=== PATIENT | male | born 1970 | race Caucasian/White ===

== ENCOUNTER 2017-09-17 13:16 | Emergency (ER) | payer OTHER, SELFPAY ==
[2017-09-17 13:17] VITALS: BP 160/76; PULSE 80; RESP 16; TEMP 36.2; O2SAT 97; BMI 25.8
--- NOTE | 2017-09-17 13:18 | CT_ITS ---
STUDY: CT ABDOMEN AND PELVIS WITHOUT CONTRAST REASON FOR EXAM: Male, 46 years old. LEFT FLANK PAIN STARTING THIS AM. RADIATION DOSAGE (If Supplied By Facility): CTDIvol = ( 7.38 ) mGy, DLP = ( 400.02 ) mGycm TECHNIQUE: Transaxial images were obtained from the dome of the diaphragm to the symphysis pubis without oral contrast, and without intravenous contrast. Sagittal and coronal images were reconstructed. Individualized dose optimization techniques were used for this CT. COMPARISON: None. FINDINGS: The visualized lung bases are unremarkable. The visualized portions of the heart are within normal limits. Normal liver. Normal gallbladder and extrahepatic biliary system. Normal spleen. Normal pancreas. Normal bilateral adrenal glands. Normal right kidney. The left kidney demonstrates the presence of mild hydroureteronephrosis. There is a 3 mm calculus at the left UVJ (axial image #164 series 2) Normal visualized stomach. Normal small intestine. There are multiple colonic diverticula consistent with diverticulosis. The appendix is visualized and appears normal. Normal abdominal aorta. Normal inferior vena cava. Normal retroperitoneum. Normal urinary bladder. Normal abdominal wall. There are diffuse degenerative changes of the visualized lumbar spine. CT/Abdomen/Pelvis without Cont IMPRESSION: 3 mm UVJ calculus with mild hydroureteronephrosis on the left. Electronically Signed: Roya Banda MD at 14:06 EST Tel , Service support ,
[2017-09-17] MEDS: Ondansetron 4 MG/2 ML Vial IV (13:33)
[2017-09-17] MEDS: 0.9% Normal Saline 1,000 ML 250 ML IV (13:33)
[2017-09-17] MEDS: Ketorolac 30 MG/ML Syringe IV (13:51)
[2017-09-17 13:58] LABS: Absolute Lymphocyte Count 2.13 X10^3/ul (0.83-4.51); Basophil# 0.03 X10^3/uL; Basophil% 0.2 % (0-1); Eosinophils% 0.8 % (0-5); Hematocrit 43.7 % (40-54); Hemoglobin 15.2 g/dl (13.0-16.5); Lymphocyte # 2.13 X10^3/ul (4.0); Lymphocyte % 16.5 % (19-41); Mean Corp Hgb Conc 34.8 g/gl (32-36); Mean Corpuscular Hgb 29.9 pg (27.0-32.0); Mean Platelet Vol. 9.8 fl (6.2-12.0); Monocyte# 0.65 X10^3/uL; Neutrophil # 9.95 X10^3/uL (2.7-7.7); Neutrophil % 77.2 % (47-70); POSITIVE COUNT NO; POSITIVE DIFFERENTIAL NO; POSITIVE MORPHOLOGY NO; Platelet Count 275 K/mm3 (150-450); RBC Distribution Width CV 13.1 % (11.6-14.6); RBC Distribution Width SD 41.3 fl (35.1-43.9); Red Blood Count 5.08 M/mm3 (4.6-6.2); White Blood Count 12.9 K/mm3 (4.4-11.0)
[2017-09-17 14:09] LABS: Anion Gap 10 (5-15); BUN 15 mg/dL (7-18); BUN/Creat Ratio 9.5 RATIO (10-20); Calcium,Total 8.8 mg/dL (8.5-10.1); Chloride 105 mmol/L (98-107); Creatinine, Serum 1.58 mg/dL (0.70-1.30); EST Glomerular Filtration Rate 50 mL/min (>60); Est Glom Filt Rate - Afr Amer 61 mL/min (>60); Estimated Creatinine Clearance 59.04 ml/min; Glucose 136 mg/dL (74-106); Potassium 3.5 mmol/L (3.5-5.1); Sodium Level 139 mmol/L (136-145)
[2017-09-17 14:39] LABS: Bacteria 0 SEEN /hpf (None Seen); Mucous, Urine 0 SEEN /hpf (<or=2+); Squamous Epithelial Cells - UA 0 SEEN /hpf (0-5); White Blood Cells 0 SEEN /hpf (0-5)
[2017-09-17 14:54] LABS: Color, Urine Yellow (Yellow); Glucose, Dipstick Normal (Normal); Ketone-Dipstick Negative (Negative); Leukocyte Esterase-Dipstick Negative /ul (Negative); Nitrite-Dipstick Negative (Negative); Occult Blood-Urine 250 /ul (Negative); Protein-Dipstick Negative (Negative); Urine Bilirubin Dipstick Negative (Negative); Urine Clarity Clear (Clear); Urine Urobilinogen Normal (Normal)
--- NOTE | 2017-09-17 15:05 | ED.DCSUM_ITS ---
- ER Visit Summary Date of Service: 09/17/17 Chief Complaint: [] Left flank pain sudden onset today History of Present Illness: The patient is a 46 M [] no real past history repeats begins having sudden onset left flank pain presents for evaluation no trauma no fever no cough normal bowel bladder habits works as a police department secretary no injury to his body Physical Examination: [] Is a pain to the left flank his vital signs are normal he is afebrile head neck chest unremarkable abdomen soft there is very vague pain to the left flank but the abdomen is soft and nontender upper lower extremity unremarkable clinically looks well he is feeling better after therapy Test Results: [] Emergency Department Course and Treatment: [] Count is 13, his creatinine is 1.58 there is no old one, the CT shows a 3 mm UVJ stone left with hydronephrosis and hydroureter, on reevaluation he is feeling better explained test results to him he feels well be discharged to follow-up with RICARDO Cantu and return for change in symptoms I did explain the concept his creatinine is slightly elevated he understands and will follow up Treatment Plan: [] Disposition: [] Stable home Impression: [] Flank pain related to obstructing left UVJ stone 3 mm This note was generated with [employer] dictation software. It may contain incorrect words, spelling, and punctuation that were not noted in review of the chart prior to signing ED Disposition - Plan for ED Patient: Chief Complaint: Flank Pain Referrals: Leobardo Box DO [Primary Care Provider] -
--- NOTE | 2017-09-17 15:05 | ED.DEP ---
ED Disposition - Plan for ED Patient: Chief Complaint: Flank Pain Instructions: ED Stone Renal W Colic Prescriptions: Hydrocodone Bitart/Apap 5-325 [[place] 5MG-325MG] 1 tab PO Q4H PRN PRN #10 tab PRN Reason: Pain Naproxen [Naprosyn] 500 mg PO BID PRN #20 tab Tamsulosin HCl [Flomax] 0.4 mg PO DAILY 7 Days cap Referrals: Leobardo Box DO [Primary Care Provider] - Lucien Hilario MD [STAFF PHYSICIAN] -
--- NOTE | 2017-09-17 15:08 | DCINST.ED_ITS ---
ED Disposition - Plan for ED Patient: Chief Complaint: Flank Pain Instructions: ED Stone Renal W Colic Prescriptions: Hydrocodone Bitart/Apap 5-325 [[place] 5MG-325MG] 1 tab PO Q4H PRN PRN #10 tab PRN Reason: Pain Naproxen [Naprosyn] 500 mg PO BID PRN #20 tab Tamsulosin HCl [Flomax] 0.4 mg PO DAILY 7 Days cap Referrals: Leobardo Box DO [Primary Care Provider] - Lucien Hilario MD [STAFF PHYSICIAN] -
[2017-09-17 15:10] LABS: Red Blood Cells-Urine 5-10 SEEN /hpf (0-5)
[2017-09-17 15:26] VITALS: BP 132/80; PULSE 76; RESP 16
== END 2017-09-17 15:30 | disposition home or self-care (01) ==
PROVIDERS: Emergency Provider Emergency Medicine; Family Provider Family Medicine; PCP Family Medicine
DX: N13.2 Hydronephrosis with renal and ureteral calculous obstruction (principal); N13.4 Hydroureter
CPT/HCPCS: 74176; 80048; 81001; 85025; 96361; 96374; 96375; 99283; J7030; J2405

== ENCOUNTER → 2017-09-20 14:26 | Outpatient (CLI) | payer OTHER, SELFPAY ==
--- NOTE | 2017-09-20 14:45 | RAD_ITS ---
STUDY: X-RAY - ABDOMEN/PELVIS REASON FOR EXAM: Male, 46 years old. Renal stone. TECHNIQUE: Single AP view of the abdomen / pelvis. COMPARISON: CT scan 09/17/2017. FINDINGS: Normal visualized lung bases. There is an unremarkable bowel gas pattern. There is no demonstrated free abdominal air. The visualized liver, spleen and kidneys are grossly normal in size and morphology. There are phleboliths in the pelvis. The 3 mm calcification described on CT scan in the distal left ureter is probably still present in the same location although plain films are markedly less accurate for evaluating tiny stones. Normal soft tissue structures. Normal visualized osseous structures. RAD/Abdomen Single View IMPRESSION: Possible persistent 3 mm distal left ureteral calculus. Electronically Signed: Hema Burns MD at 15:20 EDT , Service support ,
[2017-09-20 16:32] LABS: Creatinine, Serum 1.15 mg/dL (0.70-1.30); EST Glomerular Filtration Rate 73 mL/min (>60); Est Glom Filt Rate - Afr Amer 88 mL/min (>60)
== END ==
PROVIDERS: Family Provider Family Medicine; PCP Family Medicine; Visit Provider Nurse Practitioner Adult Health
DX: N20.1 Calculus of ureter (principal); R79.89 Other specified abnormal findings of blood chemistry
CPT/HCPCS: 36415; 74018; 82565

== ENCOUNTER 2018-10-15 19:16 | Emergency (ER) | payer OTHER, SELFPAY ==
[2018-10-15 19:16] VITALS: BP 148/100; PULSE 90; RESP 18; TEMP 36.7; O2SAT 96; BMI 26.6
--- NOTE | 2018-10-15 19:19 | RAD_ITS ---
STUDY: X-RAY - RIGHT FOOT CLINICAL: Male, 48 years old. Fall and bruising TECHNIQUE: 3 view(s) of the foot. COMPARISON: None. FINDINGS: Normal talus, calcaneus, and tarsal bones. Normal visualized subtalar, talonavicular, calcaneocuboid, tarsal and tarsometatarsal articulations. Normal metatarsi. Normal metatarsophalangeal joint of the great toe. Normal tibial and fibular sesamoid bones. Normal interphalangeal joint of the great toe. Bone island in the first distal phalanx. Normal second through fifth metatarsophalangeal joints. Normal interphalangeal joints and phalanges of the lesser toes. The soft tissue structures are unremarkable. RAD/Foot min 3 Views IMPRESSION: No acute osseous injury is evident. Electronically Signed: Rafa Machado MD at 20:00 EDT Tel , Service support ,
--- NOTE | 2018-10-15 20:35 | ED.DCSUM_ITS ---
- ER Visit Summary Date of Service: 10/15/18 Chief Complaint: Right foot injury History of Present Illness: The patient is a 48 M who states that yesterday he was on a ladder about 4 feet up when it collapsed and he fell he is unsure of how he landed. He notes swelling over the ball of the foot particularly medially and some ecchymosis over the medial instep. He notes painful walking. He denies any other injuries. Physical Examination: Afebrile vital signs are stable Gen: Well-nourished well-developed Head: Normocephalic atraumatic Eyes: Perrl EOMI ENT: TMs clear no rhinorrhea moist mucous membranes Neck: Supple no lymphadenopathy no JVD nontender CVS: Regular rate rhythm no murmurs normal S1-S2 Respiratory: No distress clear to auscultation bilaterally chest nontender Abdomen: Soft nontender nondistended normal bowel sounds no masses Back: Nontender Extremity: There is swelling over the ball the foot particularly medially tenderness at the first MTP joint. There is some ecchymosis medially and plantar in the arch of the foot. Skin: Normal color no rash Neuro: alert orientated ?3 CN II-XII intact normal strength sensation reflexes gait cerebellar Psych: Normal affect normal mood : Emergency Department Course and Treatment:Foot x-rays were negative. Patient will be discharged home with supportive care. He does not wish crutches. Impression: 1. Right foot sprain This note was generated with [employer] dictation software. It may contain incorrect words, spelling, and punctuation that were not noted in review of the chart prior to signing ED Disposition - Plan for ED Patient: Disposition: Home or Assisted Living Instructions: ED Sprain Foot Referrals: Leobardo Box DO [Primary Care Provider] - 10-14 Days if not better
[2018-10-15 20:40] VITALS: PULSE 70; RESP 15
== END 2018-10-15 20:46 | disposition home or self-care (01) ==
PROVIDERS: Emergency Provider Emergency Medicine; Family Provider Family Medicine; PCP Family Medicine
DX: S93.601A Unspecified sprain of right foot, initial encounter (principal); W11.XXXA Fall on and from ladder, initial encounter; Y93.9 Activity, unspecified; Y92.9 Unspecified place or not applicable
CPT/HCPCS: 73630; 99282

== ENCOUNTER → 2019-06-05 15:31 | Outpatient (CLI) | payer OTHER, SELFPAY ==
[2019-06-05 17:52] LABS: ALB/GLOB Ratio 1.3 RATIO (0.9-2.4); AST(SGOT) 16 U/L (15-37); Alanine Aminotransfer ALT/SGPT 27 U/L (16-61); Albumin, Serum 4.5 g/dL (3.2-5.0); Alkaline Phosphatase 53 U/L (45-117); Anion Gap 9 (5-15); BUN 14 mg/dL (7-18); BUN/Creat Ratio 12.3 RATIO (10-20); Calcium,Total 9.3 mg/dL (8.5-10.1); Chloride 106 mmol/L (98-107); Cholesterol 268 mg/dL (200); Creatinine, Serum 1.14 mg/dL (0.70-1.30); EST Glomerular Filtration Rate 73 mL/min (>60); Est Glom Filt Rate - Afr Amer 88 mL/min (>60); Globulin 3.4 g/dL (2.2-4.2); Glucose 81 mg/dL (74-106); High Density Lipoprotein 38 mg/dL; Potassium 3.9 mmol/L (3.5-5.1); Protein, Total 7.9 g/dL (6.4-8.2); Sodium Level 140 mmol/L (136-145); T4 Free Direct 0.99 ng/dL (0.76-1.46); Thyroid Stim Hormone (TSH) 2.07 uIU/mL (0.358-3.74); Triglycerides 145 mg/dL; Uric Acid 7.2 mg/dL (3.5-7.2); Very Low Density Lipoprotein 29 mg/dL (5-40)
[2019-06-05 18:06] LABS: Absolute Lymphocyte Count 2.06 X10^3/uL (0.83-4.51); Basophil# 0.06 X10^3/uL; Basophil% 0.9 % (0-1); Eosinophil# 0.07 X10^3/uL; Eosinophils% 1.1 % (0-5); Hematocrit 44.9 % (40-54); Hemoglobin 15.1 g/dL (13.0-16.5); Lymphocyte # 2.06 X10^3/ul (4.0); Mean Corp Hgb Conc 33.6 g/dL (32-36); Mean Corpuscular Hgb 29.6 pg (27.0-32.0); Mean Platelet Vol. 10.1 fl (6.2-12.0); Monocyte# 0.45 X10^3/uL; Monocyte% 6.8 % (0-10); NRBC Flagged by Analyzer 0 % (0-5); Neutrophil # 3.99 X10^3/uL (2.7-7.7); Neutrophil % 59.9 % (47-70); Platelet Count 262 K/mm3 (150-450); RBC Distribution Width CV 12.8 % (11.6-14.6); RBC Distribution Width SD 41.4 fl (35.1-43.9); White Blood Count 6.7 K/mm3 (4.4-11.0)
[2019-06-05 18:57] LABS: Hemoglobin A1c 5.5 % (4.2-6.3)
== END ==
PROVIDERS: Family Provider Internal Medicine; PCP Internal Medicine; Visit Provider Family Medicine
DX: Z00.00 Encounter for general adult medical examination without abnormal findings (principal); M10.9 Gout, unspecified; E78.5 Hyperlipidemia, unspecified; R73.01 Impaired fasting glucose
CPT/HCPCS: 36415; 80053; 80061; 83036; 84439; 84443; 84550; 85025

== ENCOUNTER → 2020-10-21 11:42 | Outpatient (CLI) | payer OTHER, SELFPAY ==
[2020-10-21 15:50] LABS: Uric Acid 8.5 mg/dL (3.5-7.2)
== END ==
PROVIDERS: PCP Family Medicine; Referring Provider Family Medicine; Visit Provider Family Medicine
DX: M10.9 Gout, unspecified (principal)
CPT/HCPCS: 36415; 84550

== ENCOUNTER → 2020-11-06 11:32 | Outpatient (CLI) | payer OTHER, SELFPAY ==
[2020-11-06 15:18] LABS: Absolute Lymphocyte Count 2.22 X10^3/uL (0.83-4.51); Basophil# 0.07 X10^3/uL; Basophil% 1.4 % (0-1); Eosinophils% 2.1 % (0-5); Hemoglobin 15.1 g/dL (13.0-16.5); Lymphocyte # 2.22 X10^3/ul (0.83-4.51); Lymphocyte % 45.9 % (19-41); Mean Corp Hgb Conc 32.8 g/dL (32-36); Mean Corpuscular Hgb 28.9 pg (27.0-32.0); Mean Corpuscular Volume 88.1 fL (80-94); Monocyte# 0.42 X10^3/uL; Monocyte% 8.7 % (0-10); NRBC Flagged by Analyzer 0 % (0-5); Neutrophil # 2.02 X10^3/uL (2.7-7.7); Neutrophil % 41.7 % (47-70); Platelet Count 307 K/mm3 (150-450); RBC Distribution Width CV 13.2 % (11.6-14.6); RBC Distribution Width SD 42.6 fl (35.1-43.9); Red Blood Count 5.22 M/mm3 (4.6-6.2); White Blood Count 4.8 K/mm3 (4.4-11.0)
[2020-11-06 15:34] LABS: Anion Gap 6 (5-15); BUN 13 mg/dL (7-18); BUN/Creat Ratio 10.8 RATIO (10-20); Calcium,Total 9.5 mg/dL (8.5-10.1); Chloride 106 mmol/L (98-107); EST Glomerular Filtration Rate 68 mL/min (>60); Est Glom Filt Rate - Afr Amer 83 mL/min (>60); Glucose 89 mg/dL (74-106); Potassium 3.9 mmol/L (3.5-5.1); Sodium Level 139 mmol/L (136-145); Uric Acid 6.8 mg/dL (3.5-7.2)
[2020-11-06 16:10] LABS: POSITIVE COUNT NO; POSITIVE MORPHOLOGY NO
[2020-11-06 16:11] LABS: Anisocytosis RARE; Red Cell Morphology N CHROM NORMAL (NORM C&C)
[2020-11-06 17:05] LABS: POSITIVE DIFFERENTIAL NO
[2020-11-06 17:07] LABS: Macrocytosis RARE; Platelet Estimate ADEQUATE (ADEQ)
== END ==
PROVIDERS: PCP Family Medicine; Referring Provider Family Medicine; Visit Provider Family Medicine
DX: M10.9 Gout, unspecified (principal); Z51.81 Encounter for therapeutic drug level monitoring
CPT/HCPCS: 36415; 80048; 84550; 85025

== ENCOUNTER → 2020-12-01 16:38 | Outpatient (CLI) | payer OTHER, SELFPAY ==
[2020-12-01 18:15] LABS: Absolute Lymphocyte Count 2.44 X10^3/uL (0.83-4.51); Absolute Neutrophil Count 3.3 X10^3/uL (2.0-7.7); Basophil# 0.05 X10^3/uL; Basophil% 0.8 % (0-1); Eosinophil# 0.09 X10^3/uL; Eosinophils% 1.4 % (0-5); Hematocrit 43.1 % (40-54); Hemoglobin 14.6 g/dL (13.0-16.5); Lymphocyte # 2.44 X10^3/ul (0.83-4.51); Lymphocyte % 37.1 % (19-41); Mean Corp Hgb Conc 33.9 g/dL (32-36); Mean Corpuscular Hgb 29.5 pg (27.0-32.0); Mean Corpuscular Volume 87.1 fL (80-94); Mean Platelet Vol. 9.8 fl (6.2-12.0); Monocyte# 0.66 X10^3/uL; NRBC Flagged by Analyzer 0 % (0-5); Neutrophil # 3.32 X10^3/uL (2.7-7.7); Neutrophil % 50.4 % (47-70); Platelet Count 268 K/mm3 (150-450); RBC Distribution Width CV 12.9 % (11.6-14.6); RBC Distribution Width SD 40.6 fl (35.1-43.9); Red Blood Count 4.95 M/mm3 (4.6-6.2); White Blood Count 6.6 K/mm3 (4.4-11.0)
[2020-12-01 18:47] LABS: Anion Gap 4 (5-15); BUN 13 mg/dL (7-18); BUN/Creat Ratio 11.1 RATIO (10-20); Calcium,Total 9.1 mg/dL (8.5-10.1); Chloride 105 mmol/L (98-107); Creatinine, Serum 1.17 mg/dL (0.70-1.30); EST Glomerular Filtration Rate 70 mL/min (>60); Est Glom Filt Rate - Afr Amer 85 mL/min (>60); Glucose 76 mg/dL (74-106); Potassium 4.3 mmol/L (3.5-5.1); Sodium Level 138 mmol/L (136-145); Uric Acid 6.2 mg/dL (3.5-7.2)
== END ==
PROVIDERS: PCP Family Medicine; Referring Provider Family Medicine; Visit Provider Family Medicine
DX: M10.9 Gout, unspecified (principal); Z51.81 Encounter for therapeutic drug level monitoring
CPT/HCPCS: 36415; 80048; 84550; 85025

== ENCOUNTER → 2022-06-11 | Outpatient (CLI) | payer OTHER, SELFPAY ==
[2022-06-11 18:05] LABS: Absolute Lymphocyte Count 2.58 X10^3/uL (0.83-4.51); Absolute Neutrophil Count 3.6 X10^3/uL (2.0-7.7); Basophil# 0.05 X10^3/uL; Basophil% 0.7 % (0-1); Eosinophil# 0.09 X10^3/uL; Eosinophils% 1.3 % (0-5); Hematocrit 44.6 % (40-54); Hemoglobin 15.2 g/dL (13.0-16.5); Lymphocyte # 2.58 X10^3/ul (0.83-4.51); Lymphocyte % 37.4 % (19-41); Mean Corp Hgb Conc 34.1 g/dL (32-36); Mean Corpuscular Volume 88.1 fL (80-94); Mean Platelet Vol. 9.8 fl (6.2-12.0); Monocyte# 0.53 X10^3/uL; Monocyte% 7.7 % (0-10); NRBC Flagged by Analyzer 0 % (0-5); Neutrophil # 3.62 X10^3/uL (2.7-7.7); Neutrophil % 52.5 % (47-70); Platelet Count 286 K/mm3 (150-450); RBC Distribution Width CV 12.8 % (11.6-14.6); RBC Distribution Width SD 41.4 fl (35.1-43.9); Red Blood Count 5.06 M/mm3 (4.6-6.2); White Blood Count 6.9 K/mm3 (4.4-11.0)
[2022-06-11 18:17] LABS: ALB/GLOB Ratio 1.2 RATIO (0.9-2.4); AST(SGOT) 22 U/L (15-37); Alanine Aminotransfer ALT/SGPT 53 U/L (16-61); Albumin, Serum 4.3 g/dL (3.2-5.0); Alkaline Phosphatase 58 U/L (45-117); Anion Gap 10 (5-15); BUN 13 mg/dL (7-18); Calcium,Total 8.9 mg/dL (8.5-10.1); Chloride 100 mmol/L (98-107); Cholesterol 251 mg/dL (200); Creatinine, Serum 1.18 mg/dL (0.70-1.30); EST Glomerular Filtration Rate 69 mL/min (>60); Est Glom Filt Rate - Afr Amer 84 mL/min (>60); Globulin 3.6 g/dL (2.2-4.2); Glucose 99 mg/dL (74-106); High Density Lipoprotein 33 mg/dL; PSA,Total - Annual Screen 1.52 ng/mL (0.00-4.00); Potassium 3.5 mmol/L (3.5-5.1); Protein, Total 7.9 g/dL (6.4-8.2); Sodium Level 137 mmol/L (136-145); Triglycerides 282 mg/dL; Uric Acid 8.1 mg/dL (3.5-7.2); Very Low Density Lipoprotein 56 mg/dL (5-40)
[2022-06-15 11:26] LABS: V-Zoster IgG (Immunity) 1777 index (Immune >165)
== END | disposition home or self-care (01) ==
PROVIDERS: PCP Family Medicine; Visit Provider Family Medicine
DX: Z00.00 Encounter for general adult medical examination without abnormal findings (principal); Z12.5 Encounter for screening for malignant neoplasm of prostate; M10.9 Gout, unspecified; Z28.39 Other underimmunization status
CPT/HCPCS: 36415; 80053; 80061; 84153; 84550; 85025; 86787; G0103

== ENCOUNTER → 2022-08-25 | Outpatient (CLI) | payer OTHER, SELFPAY ==
[2022-08-25 15:56] LABS: AST(SGOT) 29 U/L (15-37); Alanine Aminotransfer ALT/SGPT 59 U/L (16-61); Albumin, Serum 4.6 g/dL (3.2-5.0); Alkaline Phosphatase 55 U/L (45-117); Bilirubin, Direct 0.14 mg/dL (0.00-0.30); Cholesterol 145 mg/dL (200); Globulin 4.2 g/dL (2.2-4.2); High Density Lipoprotein 36 mg/dL; Protein, Total 8.8 g/dL (6.4-8.2); Triglycerides 130 mg/dL; Very Low Density Lipoprotein 26 mg/dL (5-40)
== END | disposition home or self-care (01) ==
LOC: LAB.FUTURE 11:47 → BFHLAB 11:48
PROVIDERS: PCP Family Medicine; Visit Provider Family Medicine
DX: E78.5 Hyperlipidemia, unspecified (principal)
CPT/HCPCS: 36415; 80061; 80076

== ENCOUNTER 2023-04-10 09:33 | Emergency (ER) | payer OTHER, SELFPAY ==
[2023-04-10 09:34] VITALS: BP 156/78; PULSE 64; RESP 14; TEMP 36.4; O2SAT 98; BMI 26.6
--- NOTE | 2023-04-10 09:50 | CT_ITS ---
HISTORY: Flank pain and urinary difficulty this morning, history of kidney stones 5 years ago. TECHNIQUE: Helically acquired images were obtained of the abdomen and pelvis without oral or IV contrast. A radiation dose optimization technique was used for this scan. 406 images. COMPARISON: 09/17/2017. FINDINGS: LOWER CHEST: Stable 3 mm lingular pulmonary nodule. BOWEL: Bowel including appendix nondilated. Mild colonic diverticulosis focal pericolonic inflammatory change. PERITONEUM: No significant free fluid. LIVER: Fatty infiltration with regions of sparing. GALLBLADDER/BILIARY TREE: Gallbladder present. SPLEEN/PANCREAS/ADRENAL GLANDS: Nonenlarged. KIDNEYS AND URETERS: Mild left hydroureteronephrosis and perinephric inflammation secondary to a 2 mm uterovesical junction calculus. 2 mm right lower pole calculus without hydronephrosis. VESSELS: No abdominal aortic aneurysm. PELVIC ORGANS: Unremarkable. BONES: Intact with chronic small bone islands of the pelvis and hips. CT/Abdomen/Pelvis without Cont IMPRESSION: Mild left hydronephrosis secondary to a 2 mm UVJ calculus. 2 mm nonobstructing right renal calculus. Mild colonic diverticulosis without acute diverticulitis. Stable 3 mm lingular pulmonary nodule. Fleischner Society Guidelines suggest no follow-up is necessary. Electronically Signed: Faby Townsend MD at 10:41 EDT ,
--- NOTE | 2023-04-10 09:55 | EX.ED.DYSGE1 ---
HPI History of Present Illness Chief Complaint: Flank Pain Informant: patient Narrative Narrative: 52-year-old male presenting to the emergency room with left flank pain. Patient states he has a history of kidney stones and this feels similar. Patient noted pain began abruptly at approximately 0800 hrs. today. He states that at 0715 hrs. his [id number] in hospice care. He notes urinary frequency and a discomfort under his scrotum. He notes a urge to defecate. He does note some nausea. He denies hematuria. No fevers. He has not required surgical intervention for kidney stones in the past. [facility] Medical History (Updated 04/10/23 @ 11:[address] Harjeet Britton DO) Kidney stones Home Medications ondansetron 4 mg disintegrating tablet 4 mg PO Q6H PRN PRN Nausea #10 tabs 04/10/23 [Rx Last Taken Unknown] oxycodone-acetaminophen 5 mg-325 mg tablet 1 tab PO Q6H PRN PRN Pain 3 days #12 TABLETS 04/10/23 [Rx Last Taken Unknown] Allergy/AdvReac Type Severity Reaction Status Date / Time No Known Allergies Allergy Verified 04/10/23 09:34 Social History (Updated 04/10/23 @ 09:[address] Harjeet Britton DO) Smoking Status: Never smoker substance use type: does not use ROS ROS ED Constitutional Constitutional ED: Denies chills, fever(s) or weight loss Eyes Eyes: Denies change in vision or diplopia ENT ENT ED: Denies ear pain, rhinorrhea or sore throat Cardiovascular Cardiovascular: Denies chest pain, orthopnea, palpitations or racing heartbeat Respiratory/Chest Respiratory/Chest: Denies cough, dyspnea or orthopnea Gastrointestinal Gastrointestinal: Reports abdominal pain and nausea; Denies constipation, diarrhea or vomiting Genitourinary Genitourinary ED: Reports urinary frequency; Denies dysuria or hematuria Musculoskeletal Musculoskeletal: Reports back pain; Denies arthralgias, myalgias or neck pain Integumentary Denies abscess, Abrasions or rash Neurologic Neurologic: Denies headache(s) or weakness Psychiatric Psychiatric: Denies anxiety, depression, suicidal ideation or suicidal thoughts Endocrine Endocrinology: Denies polydipsia, polyphagia or polyuria Allergic/Immunologic Allergic/Immunologic ED: Denies mouth swelling, tongue swelling or urticaria EXAM Physical Exam Narrative Exam Narrative: Patient appears uncomfortable pacing in the room. Const Vital Signs: 04/10/23 09:34 Temperature 97.6 F L Temperature Source Temporal Pulse Rate 64 Respiratory Rate 14 Blood Pressure 156/78 H Blood Pressure Mean 104 Pulse Ox 98 Oxygen Delivery Method Room Air Positive well nourished and well developed General Appearance ED: well developed HEENT Reports normocephalic, head/scalp atraumatic and moist mucous membranes Eyes PERRL and EOMs intact bilaterally Neck no lymphadenopathy, supple and no JVD Resp normal respiratory effort and clear to auscultation bilaterally Cardio regular rate, regular rhythm and no murmurs GI normal to inspection, nondistended, normoactive bowel sounds and non-tender Palpation: soft Back/Spine no CVA tenderness and normal ROM Extremity normal to inspection General Extremety ED: Negative for edema General Extremity: Negative for edema Neuro oriented x3 and CN's II-XII intact bilaterally Sensorium / Orientation: alert Motor Exam: strength 5/5 throughout Psych mental status grossly normal Mood & Affect: Negative for depressed or tearful Skin no rashes or lesions noted and no wounds MDM MDM MDM Narrative Medical decision making narrative: White count is normal at 7.7. Creatinine slightly elevated at 1.48. Urinalysis negative. CT of the abdomen pelvis demonstrates a partial obstructing distal ureteral stone on the left measuring approximately 2 to 3 mm. There is some associated hydronephrosis. Patient received morphine Toradol Zofran and fluids. I will write for pain medication at home. This has a high likelihood of passing and he was advised of such. He understands return instructions as well as urologic follow-up. Lab Data Labs: Laboratory Results - last 24 hr 04/10/23 04/10/23 09:50 11:05 WBC 7.7 RBC 5.04 Hgb 15.6 Hct 44.6 MCV 88.5 MCH 31.0 MCHC 35.0 RDW Std Deviation 41.0 RDW Coeff of Vivek 12.6 Plt Count 279 MPV 9.6 Immature Gran % (Auto) 0.400 Neut % (Auto) 52.7 Lymph % (Auto) 36.4 Alexander % (Auto) 8.3 Eos % (Auto) 1.3 Baso % (Auto) 0.9 Absolute Neuts (auto) 4.1 Absolute Lymphs (auto) 2.80 Nucleated RBC % 0 Sodium 138 Potassium 4.0 Chloride 107 Carbon Dioxide 27.0 Anion Gap 4 L BUN 18 Creatinine 1.48 H Estim Creat Clear Calc 59.05 Est GFR (MDRD) Af Amer 64 Est GFR (MDRD) Non-Af 53 L BUN/Creatinine Ratio 12.2 Glucose 115 H Calcium 9.2 Urine Color YELLOW Urine Clarity Clear Urine pH 5.0 Ur Specific [place] 1.025 Urine Protein 15 H Urine Glucose (UA) Normal Urine Ketones Negative Urine Occult Blood 50 H Urine Nitrite Negative Urine Bilirubin Negative Urine Urobilinogen Normal Ur Leukocyte Esterase Negative Urine RBC 0 SEEN Urine WBC 0 SEEN Ur Squamous Epith Cells 0 SEEN Urine Bacteria 0 SEEN Urine Mucus 0 SEEN Radiography Diagnostic Testing: Clinical Impression(s) from Imaging Studies Abdomen/Pelvis CT 04/10/23 09:50 IMPRESSION: Mild left hydronephrosis secondary to a 2 mm UVJ calculus. 2 mm nonobstructing right renal calculus. Mild colonic diverticulosis without acute diverticulitis. Stable 3 mm lingular pulmonary nodule. Fleischner Society Guidelines suggest no follow-up is necessary. Electronically Signed: Faby Townsend MD at 10:41 EDT Reading Location ID and State: [facility] / [place] Tel , Service support , Discharge Plan Triage Chief Complaint: Flank Pain ED Provider: Harjeet Britton Dx/Rx/DC Orders Clinical Impression: Acute left flank pain, Ureterolithiasis Instructions: ED Kidney Stone w/ Colic Prescriptions: New oxycodone-acetaminophen [oxycodone-acetaminophen] 5-325 mg tablet 1 tab PO Q6H PRN PRN (Reason: Pain) 3 Days Qty: 12 0RF ondansetron [ondansetron] 4 mg tablet,disintegrating 4 mg PO Q6H PRN PRN (Reason: Nausea) Qty: 10 0RF Primary Care Provider: Leobardo Box Referrals: Lucien Hilario MD [Med Staff - Active Staff] - 3-5 Days if not improving Leobardo Box, DO [Primary Care Provider] - 10-14 Days if not better Disposition Disposition: Home, Self Care
[2023-04-10] MEDS: 0.9% Normal Saline (1000mL) 1,000 ML 250 ML IV (09:58)
[2023-04-10] MEDS: Ondansetron 4 MG/2 ML Vial IV (09:59)
[2023-04-10] MEDS: Ketorolac 30 MG/ML Syringe IV (09:59)
[2023-04-10] MEDS: Morphine 4 MG/ML Syringe IV (09:59)
[2023-04-10 10:01] LABS: Absolute Neutrophil Count 4.1 X10^3/uL (2.0-7.7); Basophil# 0.07 X10^3/uL; Basophil% 0.9 % (0-1); Eosinophils% 1.3 % (0-5); Hematocrit 44.6 % (40-54); Hemoglobin 15.6 g/dL (13.0-16.5); Lymphocyte % 36.4 % (19-41); Mean Corpuscular Volume 88.5 fL (80-94); Mean Platelet Vol. 9.6 fl (6.2-12.0); Monocyte# 0.64 X10^3/uL; Monocyte% 8.3 % (0-10); NRBC Flagged by Analyzer 0 % (0-5); Neutrophil # 4.06 X10^3/uL (2.7-7.7); Neutrophil % 52.7 % (47-70); Platelet Count 279 K/mm3 (150-450); RBC Distribution Width CV 12.6 % (11.6-14.6); Red Blood Count 5.04 M/mm3 (4.6-6.2); White Blood Count 7.7 K/mm3 (4.4-11.0)
[2023-04-10 10:15] LABS: Anion Gap 4 (5-15); BUN 18 mg/dL (7-18); BUN/Creat Ratio 12.2 RATIO (10-20); Calcium,Total 9.2 mg/dL (8.5-10.1); Chloride 107 mmol/L (98-107); Creatinine, Serum 1.48 mg/dL (0.70-1.30); EST Glomerular Filtration Rate 53 mL/min (>60); Est Glom Filt Rate - Afr Amer 64 mL/min (>60); Estimated Creatinine Clearance 59.05 ml/min; Glucose 115 mg/dL (74-106); Sodium Level 138 mmol/L (136-145)
[2023-04-10 11:17] LABS: Bacteria 0 SEEN /hpf (None Seen); Mucous, Urine 0 SEEN /hpf (<or=2+); Red Blood Cells-Urine 0 SEEN /hpf (0-5); Squamous Epithelial Cells - UA 0 SEEN /hpf (0-5); White Blood Cells 0 SEEN /hpf (0-5)
[2023-04-10 11:39] LABS: Color, Urine YELLOW (Yellow); Glucose, Dipstick Normal (Normal); Ketone-Dipstick Negative (Negative); Leukocyte Esterase-Dipstick Negative /ul (Negative); Nitrite-Dipstick Negative (Negative); Occult Blood-Urine 50 /ul (Negative); Protein-Dipstick 15 mg/dl (Negative); Specific Gravity, Urine 1.025 (1.002-1.030); Urine Bilirubin Dipstick Negative (Negative); Urine Urobilinogen Normal (Normal)
[2023-04-10 11:40] LABS: Urine Clarity Clear (Clear)
== END 2023-04-10 12:06 | disposition home or self-care (01) ==
PROVIDERS: Emergency Provider Emergency Medicine; PCP Family Medicine; Visit Provider Emergency Medicine
DX: R10.9 Unspecified abdominal pain (principal); N13.2 Hydronephrosis with renal and ureteral calculous obstruction
CPT/HCPCS: 74176; 80048; 81001; 85025; 96374; 96375; 99283; J2405

== ENCOUNTER → 2024-03-29 | Outpatient (CLI) | payer OTHER, SELFPAY ==
--- NOTE | 2024-03-29 12:50 | RAD_ITS ---
STUDY: X-RAY - CERVICAL SPINE REASON FOR EXAM: Male, 53 years old. Assess vertebral alignment. TECHNIQUE: 5 view(s) of the cervical spine were obtained. COMPARISON: None FINDINGS: Normal anterior atlantoaxial articulation. Normal odontoid process. Reversal of the normal lordotic curve. Diffuse moderate uncovertebral and facet sclerosis. Intervertebral disc space narrowing at C4-5, C5-6 and C6-7. Normal visualized intervertebral foramen. Normal soft tissues. RAD/Cerv Spine 4 or 5 Views IMPRESSION: Reversal of the normal lordotic curve with mild cervical spondylosis from C4-5 through C6-7. Electronically Signed: Hema Dubon MD at 14:51 EDT ,
[2024-03-29 15:21] LABS: Erythrocyte Sedimentation Rate 6 mm/hr (0-20)
[2024-03-29 15:23] LABS: Absolute Neutrophil Count 3.1 X10^3/uL (2.0-7.7); Basophil# 0.06 X10^3/uL; Basophil% 1.1 % (0-1); Eosinophil# 0.09 X10^3/uL; Eosinophils% 1.6 % (0-5); Hematocrit 42.1 % (40-54); Hemoglobin 13.8 g/dL (13.0-16.5); Lymphocyte % 36.9 % (19-41); Mean Corp Hgb Conc 32.8 g/dL (32-36); Mean Corpuscular Hgb 29.4 pg (27.0-32.0); Mean Corpuscular Volume 89.8 fL (80-94); Mean Platelet Vol. 10.4 fl (6.2-12.0); Monocyte% 5.3 % (0-10); NRBC Flagged by Analyzer 0 % (0-5); Neutrophil % 54.4 % (47-70); Platelet Count 287 K/mm3 (150-450); RBC Distribution Width CV 12.9 % (11.6-14.6); Red Blood Count 4.69 M/mm3 (4.6-6.2); White Blood Count 5.7 K/mm3 (4.4-11.0)
[2024-03-29 15:27] LABS: ALB/GLOB Ratio 1.1 RATIO (0.9-2.4); AST(SGOT) 17 U/L (15-37); Alanine Aminotransfer ALT/SGPT 24 U/L (16-61); Alkaline Phosphatase 57 U/L (45-117); Anion Gap 7 (5-15); BUN 16 mg/dL (7-18); BUN/Creat Ratio 12.1 RATIO (10-20); CRP < 2.90 mg/L (0.0-3.0); Calcium,Total 9.2 mg/dL (8.5-10.1); Chloride 104 mmol/L (98-107); Creatinine, Serum 1.32 mg/dL (0.70-1.30); EST Glomerular Filtration Rate 60 mL/min (>60); Est Glom Filt Rate - Afr Amer 73 mL/min (>60); Globulin 3.5 g/dL (2.2-4.2); Glucose 128 mg/dL (74-106); Potassium 3.6 mmol/L (3.5-5.1); Protein, Total 7.5 g/dL (6.4-8.2); Sodium Level 138 mmol/L (136-145)
[2024-03-30 14:50] LABS: Rheumatoid Factor < 10.0 IU/mL (<15)
[2024-03-31 13:07] LABS: CCP IgG Antibodies 6 units (0-19)
[2024-04-02 13:07] LABS: ANTINUCLEAR ANTIBODIES DIRECT Negative (Negative)
== END | disposition home or self-care (01) ==
PROVIDERS: PCP Family Medicine; Referring Provider Nurse Practitioner Family; Visit Provider Nurse Practitioner Family
DX: M25.50 Pain in unspecified joint (principal); I10 Essential (primary) hypertension; M54.2 Cervicalgia
CPT/HCPCS: 36415; 72050; 80053; 85025; 85652; 86038; 86140; 86200; 86431

== ENCOUNTER 2024-05-03 14:00 | Outpatient (RCR) | payer OTHER, SELFPAY | END 2024-05-03 19:00 | disposition home or self-care (01) | LOC: PT 14:00 | PROVIDERS: PCP Family Medicine; Referring Provider Nurse Practitioner Family; Visit Provider Nurse Practitioner Family | DX: M54.2 Cervicalgia (principal) | CPT/HCPCS: 97012; 97035; 97110; 97140; 97162; 97530 ==

== ENCOUNTER → 2024-08-30 | Outpatient (CLI) | payer OTHER, SELFPAY ==
[2024-08-30 12:43] LABS: Anion Gap 8 (5-15); BUN 22 mg/dL (7-18); BUN/Creat Ratio 16.8 RATIO (10-20); Calcium,Total 9.8 mg/dL (8.5-10.1); Chloride 102 mmol/L (98-107); Cholesterol 173 mg/dL (200); Creatinine, Serum 1.31 mg/dL (0.70-1.30); EST Glomerular Filtration Rate 61 mL/min (>60); Est Glom Filt Rate - Afr Amer 74 mL/min (>60); Glucose 130 mg/dL (74-106); High Density Lipoprotein 54 mg/dL; PSA,Total - Annual Screen 1.39 ng/mL (0.00-4.00); Potassium 4.4 mmol/L (3.5-5.1); Sodium Level 136 mmol/L (136-145); Triglycerides 71 mg/dL; Uric Acid 7.2 mg/dL (3.5-7.2); Very Low Density Lipoprotein 14 mg/dL (5-40)
== END | disposition home or self-care (01) ==
PROVIDERS: PCP Family Medicine; Visit Provider Family Medicine
DX: Z00.00 Encounter for general adult medical examination without abnormal findings (principal); M10.9 Gout, unspecified; Z12.5 Encounter for screening for malignant neoplasm of prostate
CPT/HCPCS: 36415; 80048; 80061; 84153; 84550; G0103

== ENCOUNTER 2024-11-13 16:30 | Outpatient (RCR) | payer OTHER, SELFPAY ==
--- NOTE | 2024-10-29 19:17 | HP.PTEVAL ---
Patient's Visit Information Visit Information Visit Information: GAEL ELIAS is a 54 year old M referred to Physical Therapy by Dr. Ottoniel Faria MD with a diagnosis of RADICULOPATHY ,CERVICAL. Date of Evaluation: 10/29/24 Physical Therapist: Rex Yeager, PT, Cert MDT, OCS Visit Plan Frequency: 2x /Week Duration: 4 Weeks Plan: PT INTERVENTIONS CERVICAL ROM ( AVOID LEFT) ,POSTURAL EX'S ,SCAPULAR STRENGTHENING AND ACTIVITIES MODIFICATION Subjective Subjective: This 54 y/o male presents to physical therapy with radiculopathy cervical . Patient has had cervical pain for many years 25 years. Symptoms got better then [address] recommend PT which did not help include traction. Patient had MRI showed C3-4 spondylolisthesis with mild dynamic instability. At C3-C6 there is disc degeneration with stenosis with mild cord compression without significant cord signal changes. Multilevel foraminal stenosis noticed most severe at C3-4 on the left as well as C5-6 on the left. Tried injections did not help in Jul and Aug. symptoms better for [address] Ma[address] Faria ready for C3-6 ACDF but not ready at this point.Recommended PT and patient seen 2 nds opinion recommended lateral approach from his pain DR . After discussion with patient patient will proceed with PT. Patient stopped all pain medication lyrica. Over all pain is better. Pain located left burning and radiating paresthesia/tingling in left hand. Aggravating factors sitting , driving .rotation. Alleviating factors advil . Sleeping okay pain doesnt affects sleeping. Denies nausea/GARZA /dizziness/tinnitus. Patient condition affects QOL and job demands. Patient goals to decrease. VOACTION: [employer] SOCAIL: HOBBIES: pickle ball Pain Bilateral Neck: Pain Intensity (Out of 10): 5 Pain Intensity Range: 10 Objective Objective: POSTURE: mild forward posture PALPATION: tender paraspinals /UT /levator NEURO: denies paresthesia/tingling ,reflexes C5-6-7 2/3 CERVICAL ROM: flexion min loss ,rotation /lateral flexion mod right ,extension mod MMT: BUE grossly 4/5 [employer] STRENGTH: right 100#,left 70# Special Tests C/S Radiculapathy - Left Upper limb tension test: Negative C/S Radiculapathy - Right Upper limb tension test: Negative C/S Radiculapathy - Left Spurlings: Positive C/S Radiculapathy - Right Spurlings: Positive C/S Radiculapathy - Left Cervical distraction: Negative C/S Radiculapathy - Right Cervical distraction: Negative C/S Radiculapathy - Left Relief test: Negative C/S Radiculapathy - Right Relief test: Negative Sharp Lang: Negative Vertebral Artery Test: Negative Alar Ligament Test: Negative Balance/Special Test Scores Oswestry Neck Score: 16 Goals Goal 1:: Patient to be I with cervical Goal Time Frame: 4-6 Weeks Goal 2:: Patient to improve cervical ROM for function of recovery for driving Goal Time Frame: 4-6 Weeks Goal 3:: Patient to demonstrate 50% improvement with less pain and improved function. Goal Time Frame: 4-6 Weeks Goal 4:: Patient to improve neck oswestry score by 3-5 points to improve QOL Goal Time Frame: 4-6 Weeks Goal 5:: Patient to demonstrate 40% improvement with less pain and ADL's Goal Time Frame: 4-6 Weeks Rehabilitation Potential Physical Therapy Diagnosis: This patient has cervical stenosis foraminal left with pain with positioning and motion testing along with decrease posture thus benefit from skilled PT Rehabilitation Potential: Fair Anticipated Interventions Patient/Client Instruction: Educate patient on: Condition and Plan of Care For the Purpose of:: To decrease pain, To increase ROM, To improve muscle performance and motor function, To increase tolerance to activity/condition/position, To improve ability of physical actions for home/community/work/leisure, To improve health of tissue, To decrease soft tissue restriction, To increase flexibility/ROM, To reduce risk of recurrence, To prevent re-injury and To improve tolerance to ADL's Therapeutic Exercise to Include: Strength training, Postural training, Flexibilty training and Scapular Strength/Stabilization For the Purpose of:: To decrease pain, To improve muscle performance and motor function, To increase tolerance to activity/condition/position, To improve ability of physical actions for home/community/work/leisure, To improve health of tissue, To decrease soft tissue restriction, To improve balance, To reduce risk of recurrence and To improve tolerance to ADL's Text: Thank you for the opportunity to evaluate your patient. For Medicare and Medicare HMO plans, please review the plan of care and approve it. It will need to be FAXED BACK to us at [phone] for Medicare purposes. For Medicare only, by signing this I certify the plan of care. Please let me know if there are questions or concerns regarding this plan of care. Physician Signature: Date:
--- NOTE | 2025-03-18 16:45 | HP.PT.NRP ---
Patient Information Patient Information: GAEL ELIAS was seen in my office for initial evaluation on 10/29/24. The following Plan of Care was established for this patient: POC Established Initial Frequency: 2x /Week Initial Duration: 4 Weeks Anticipated Interventions Patient/Client Instruction: Educate patient on: Condition and Plan of Care For the Purpose of:: To decrease pain, To increase ROM, To improve muscle performance and motor function, To increase tolerance to activity/condition/position, To improve ability of physical actions for home/community/work/leisure, To improve health of tissue, To decrease soft tissue restriction, To increase flexibility/ROM, To reduce risk of recurrence, To prevent re-injury and To improve tolerance to ADL's Therapeutic Exercise to Include: Strength training, Postural training, Flexibilty training and Scapular Strength/Stabilization For the Purpose of:: To decrease pain, To improve muscle performance and motor function, To increase tolerance to activity/condition/position, To improve ability of physical actions for home/community/work/leisure, To improve health of tissue, To decrease soft tissue restriction, To improve balance, To reduce risk of recurrence and To improve tolerance to ADL's Last Seen Last Seen: This patient was last seen in our office . Pertinent comments regarding their Physical therapy will appear below: Patient was seen for PT for cervical radiculopathy thus is d/c after 3 visits At this point I will be discontinuing this patient from physical therapy. I would be happy to see this patient again in the future if found appropriate by the physician. Thank you! Rex Yeager, PT, Cert MDT, OCS Balance/Gait/Functional tests Balance/Special Test Scores Oswestry Neck Score: 16
== END 2024-11-13 19:00 | disposition home or self-care (01) ==
LOC: PT 16:30
PROVIDERS: PCP Family Medicine; Referring Provider Orthopaedic Surgery Orthopaedic Surgery of the Spine; Visit Provider Orthopaedic Surgery Orthopaedic Surgery of the Spine
DX: M54.12 Radiculopathy, cervical region (principal)
CPT/HCPCS: 97110; 97162

== ENCOUNTER → 2024-12-08 | Outpatient (CLI) | payer OTHER, SELFPAY ==
[2024-12-08 10:17] LABS: Absolute Lymphocyte Count 2.19 X10^3/uL (0.83-4.51); Absolute Neutrophil Count 2.2 X10^3/uL (2.0-7.7); Basophil# 0.05 X10^3/uL; Eosinophil# 0.08 X10^3/uL; Eosinophils% 1.6 % (0-5); Hemoglobin 13.9 g/dL (13.0-16.5); Lymphocyte # 2.19 X10^3/ul (0.83-4.51); Lymphocyte % 43.8 % (19-41); Mean Corp Hgb Conc 34.8 g/dL (32-36); Mean Corpuscular Hgb 30.1 pg (27.0-32.0); Mean Corpuscular Volume 86.6 fL (80-94); Mean Platelet Vol. 9.7 fl (6.2-12.0); Monocyte# 0.45 X10^3/uL; NRBC Flagged by Analyzer 0 % (0-5); Neutrophil # 2.21 X10^3/uL (2.7-7.7); Neutrophil % 44.2 % (47-70); Platelet Count 254 K/mm3 (150-450); RBC Distribution Width CV 12.7 % (11.6-14.6); RBC Distribution Width SD 39.8 fl (35.1-43.9); Red Blood Count 4.62 M/mm3 (4.6-6.2)
[2024-12-08 11:17] LABS: ALB/GLOB Ratio 1.8 RATIO (0.9-2.4); AST(SGOT) 21 U/L (<=37); Alanine Aminotransfer ALT/SGPT 24 U/L (<=46); Albumin, Serum 4.6 g/dL (3.5-5.0); Alkaline Phosphatase 57 U/L (40-129); Anion Gap 13 (5-15); BUN 20 mg/dL (4-19); BUN/Creat Ratio 16.3 RATIO (10-20); Calcium,Total 9.4 mg/dL (7.6-11.0); Carbon Dioxide 20.6 mmol/L (21.0-32.0); Chloride 105 mmol/L (98-108); Creatinine, Serum 1.23 mg/dL (0.70-1.20); EST Glomerular Filtration Rate 70 (>60); Globulin 2.5 g/dL (2.2-4.2); Glucose 109 mg/dL (70-99); Potassium 4.2 mmol/L (3.3-5.1); Protein, Total 7.1 g/dL (5.9-8.4); Sodium Level 139 mmol/L (133-145); Total Bilirubin 0.35 mg/dL (0.00-1.30)
[2024-12-08 11:46] LABS: Estradiol 24.1 pg/mL; Luteinizing Hormone 7.4 mIU/mL; T3 Total - Triiodothyronine 1.02 ng/mL (0.80-2.00); T4 Total, Thyroxin 5.8 ug/dL (4.5-12.1); Vitamin B12 3576 pg/mL (180-914); Vitamin D,25 Hydroxy 65.5 ng/mL (30-100)
[2024-12-09 14:51] LABS: Free T3 3.3 pg/mL (2.18-3.98)
[2024-12-12 14:09] LABS: PROLACTIN 6.3 ng/mL (3.6-25.2); Sex Hormone-binding Globulin 19.2 nmol/L (19.3-76.4); Testosterone, % Free 3.13 % (1.50-4.20); Testosterone, Free 9.23 ng/dL (5.00-21.00); Testosterone, Total 295 ng/dL (264-916); Thyroid Peroxidase AB < 9 IU/mL (0-34)
== END | disposition home or self-care (01) ==
LOC: LAB 09:15
PROVIDERS: PCP Family Medicine
DX: R68.82 Decreased libido (principal); E07.9 Disorder of thyroid, unspecified; R53.83 Other fatigue; Z13.21 Encounter for screening for nutritional disorder
CPT/HCPCS: 36415; 80053; 82306; 82607; 82670; 83002; 84146; 84270; 84402; 84403; 84436; 84439; 84443; 84480; 84481; 85025; 86376

== ENCOUNTER → 2025-05-17 | Outpatient (CLI) | payer OTHER, SELFPAY ==
--- OUTSIDE RECORDS SUMMARY | 2025-05-17 07:40 | XMS RPT_ITS | CCD ---
Author Organization [facility] Care Team Providers Care Extruder Operator Multiple Name Role Phone Dr. Prem Box Attending Unavaila Dr. Prem Joiner Primary Care Unavaila ble Unavailable Primary Care Provider UnavailCHRISTI Sabillon Referring Unavailable GIOVANNY MUELLER Attending Unavailable Dr. Prem Box DO Primary Care Provider Dr. Prem Box DO Attending Provider Dr. Prem Box DO Referring Provider Dr. Ottoniel Faria MD Attending Provider Dr. Antonio Salinas MD Attending Provider Dr. Ottoniel Faria MD Referring Provider AMAIRANI UMANZOR Attending Provider AMAIRANI UMANZOR Referring Provider Dr. Prem Box DO Primary Care Provider Prem Box Attending Unavailable Prem Box Primary Care Unavailable OOTDR ALICIA Attending Unavailable OOTDR ALICIA Referring Unavailable Prem Box Primary Care Unavailable Ottoniel Faria Attending Unavailable Prem Box Referring Unavailable Prem Box Primary Care Unavailable Antonio Salinas Attending Unavailable Prem Box Primary Care Unavailable Ottoniel Faria Referring Unavailable Prem Box Primary Care Unavailable Ottoniel Faria Attending Unavailable Prem Box Primary Care Unavailable Abdullahi, Christi Attending Unavailable Abdullahi, Christi Referring Unavailable Prem Box Primary Care Unavailable Abdullahi, Christi Attending Unavailable Abdullahi, Christi Referring Unavailable Prem Box Attending Unavailable Prem Box Referring Unavailable Prem Box Primary Care Unavailable Medications Current Medications Medication Drug Class(es) Dates Sig (Normalized) Sig (Original) aspirin 81 mg delayed release oral tablet (3 sources) Platelet Aggregation Inhibitor, Nonsteroidal Anti-inflammatory Drug Start: 09-25-2024 take 1 tablet by mouth once daily Aspirin 81 mg tablet,delayed release (DR/EC) Active 81 mg PO daily October 16, 2024 12:00am calcium ascorbate 500 mg oral tablet (2 sources) Start: 10-16-2024 take 1 tablet by mouth once daily Ascorbate Calcium (Vitamin C) 500 mg tablet Active 500 mg PO daily October 16, 2024 12:00am cholecalciferol 0.025 mg oral capsule (2 sources) Vitamin D Start: 10-16-2024 take 1 capsule by mouth once daily Cholecalciferol (Vitamin D3) 25 mcg (1,000 unit) capsule Active 25 ug PO daily October 16, 2024 12:00am famotidine 40 mg oral tablet (3 sources) Histamine-2 Receptor Antagonist Start: 07-15-2024 take 1 tablet by mouth once daily Famotidine 40 mg tablet Active 40 mg PO daily October 16, 2024 12:00am lisinopril 10 mg oral tablet (3 sources) Angiotensin Converting Enzyme Inhibitor Start: 07-16-2024 take 1 tablet by mouth once daily Lisinopril 10 mg tablet Active 10 mg PO daily October 16, 2024 12:00am Magnesium Glycinate 100 mg magnesium capsule (2 sources) Start: 10-16-2024 Magnesium Glycinate 100 mg magnesium capsule Active mg PO October 16, 2024 12:00am mecobalamin (2 sources) Start: 10-16-2024 Mecobalamin (Vitamin B12) 500 mcg tablet,chewable Active ug PO October 16, 2024 12:00am pregabalin 75 mg oral capsule (2 sources) Start: 10-16-2024 take 1 capsule by mouth twice daily as needed Pregabalin 75 mg capsule Active 75 mg PO TWICE A DAY as needed October 16, 2024 12:00am rosuvastatin 10 mg oral capsule (3 sources) HMG-CoA Reductase Inhibitor Start: 10-16-2024 take 1 tablet by mouth at bedtime Rosuvastatin 10 mg tablet Active 10 mg PO AT BEDTIME October 16, 2024 12:00am Start: 09-25-2024 rosuvastatin ( CRESTOR) 10 mg tablet 09/25/2024 Active Completed/Discontinued Medications Medication Drug Class(es) Dates Sig (Normalized) Sig (Original) acetaminophen 325 mg / oxyCODONE hydrochloride 5 mg oral tablet (3 sources) Opioid Agonist Start: 04-10-2023 End: 10-16-2024 Oxycodone-Acetamino phen 5-325 mg tablet Discontinued 1 {tbl} PO EVERY 6 HOURS NEEDED as needed for Pain 12 3 April 10, 2023 October 16, 2024 2:46pm Calculus of ureter Calculus of ureter Start: 04-10-2023 take 1 tablet by janice th every six hours as needed Oxycodone-Acetaminophen Active 1 TABLET PO EVERY 6 HOURS NEEDED 12 April 10, 2023 ondansetron 4 mg disintegrating oral tablet (3 sources) Serotonin-3 Receptor Antagonist Start: 04-10-2023 End: 10-16-2024 take 1 tablet by mouth every six hours as needed for nausea Ondansetron 4 mg tablet,disintegrating Discontinued 4 mg PO EVERY 6 HOURS NEEDED as needed for Nausea 10 April 10, 2023 11:45am October 16, 2024 2:46pm Problems Active Problems Problem Classification Problem Date Documented Da te Episodic/Chronic Abdominal pain (3 sources) Left flank pain; Translations: [Unspecified abdominal pain] 04-10-2023 Episodic Calculus of urinary tract (3 sources) Ureteric stone; Translations: [Calculus of ureter] 04-10-2023 Episodic Disorders of lipid metabolism (2 sources) Hypercholesterolemi a; Translations: [Pure hypercholesterolemi a, unspecified] 10-16-2024 Chronic Essential hypertension (5 sources) Essential (primary) hypertension; Translations: [Hypertensive disorder] Onset: 06-18-2022 Chronic Gout and other crystal arthropathies (2 sources) Gout; Translations: [Gout, unspecified] 10-16-2024 Chronic Other nervous system disorders (3 sources) Cervical myelopathy; Translations: [Disease of spinal cord, unspecified] 10-17-2024 Chronic Spondylosis; intervertebral disc disorders; other back problems (9 sources) Cervical disc disorder with radiculopathy; Translations: [Cervical disc disorder with radiculopathy, unspecified cervical region] Onset: 05-25-2024 10-29-2024 Episodic Unclassified (1 source) M54.12 - Radiculopathy, cervical region Past or Other Problems Problem Classification Problem Date Documented Date Episodic/Chronic Other connective tissue disease (2 sources) Enthesopathy of knee; Translations: [Other specified enthesopathies of unspecified lower limb, excluding foot] Onset: 03-02-2010 03-02-2010 Episodic Other non-traumatic joint disorders (1 source) Pain in unspecified joint; Translations: [Pain in unspecified joint] Onset: 04-23-2024 Episodic Residual codes; unclassified (1 source) Decreased libido; Translations: [Decreased libido] Onset: 12-13-2024 Episodic Results Test Name Value Interpretation Reference Range Facility PROLACTIN 4465on 12-12-2024 PROLACTIN 6.3 ng/mL Normal 3.6-25.2 [facility] Comment on above: Performed By: #### L 100.0100, L501.46498, L501.9310, L506.0400, L500.4050, L3300.1750, L506.1001, L3100.5170, L3300.6900, L503.0106, L3100.5310, L501.9520, L501.9187, L3100.5060, L3100.5400 ####[facility] [address] [place], [address] Sex Hormone-binding Globulin on 12-12-2024 SHBG 19.2 nmol/L Low 19.3-76.4 [facility] Comment on above: Result Comment: Perf ormed at: [facility] [address] [id number] Management Expert: Dino Garcia PhD, Phone: [phone] Performed at: [facility] [address] [id number] Management Expert: Carrol Hendrix MD, Phone: [phone] Performed By: #### L 100.0100, L501.05414, L501.9310, L506.0400, L500.4050, L3300.1750, L506.1001, L3100.5170, L3300.6900, L503.0106, L3100.5310, L501.9520, L501.9187, L3100.5060, L3100.5400 ####[facility] [address] [place], [place], [phone] Testosterone, Total / Freeon 12-12-2024 TESTOSTER,FREE 9.23 ng/dL Normal 5.00-21.00 [facility] Comment on above: Order Comment: N Performed By: #### L 100.0100, L501.34566, L501.9310, L506.0400, L500.4050, L3300.1750, L506.1001, L3100.5170, L3300.6900, L503.0106, L3100.5310, L501.9520, L501.9187, L3100.5060, L3100.5400 ####[facility] [address] [place], [place], [id number] TESTOSTER,TOTAL 295 ng/dL Normal 264-916 [facility] Comment on above: Order Comment: N Result Comment: Adul t male reference interval is based on a population of healthy nonobese males (BMI <30) between 19 and 39 years old. micheal Mix.al. JCEM 2017,102;2233-8563. PMID: [id number]. Performed By: #### L 100.0100, L501.50259, L501.9310, L506.0400, L500.4050, L3300.1750, L506.1001, L3100.5170, L3300.6900, L503.0106, L3100.5310, L501.9520, L501.9187, L3100.5060, L3100.5400 ####[facility] [address] [place], [place], [phone]([phone]) TESTOSTERONE,%F 3.13 Normal 1.50-4.20 [facility] Comment on above: Order Comment: N Performed By: #### L 100.0100, L501.37519, L501.9310, L506.0400, L500.4050, L3300.1750, L506.1001, L3100.5170, L3300.6900, L503.0106, L3100.5310, L501.9520, L501.9187, L3100.5060, L3100.5400 ####[facility] [address] [place], [place], [phone] Thyroid Peroxidase ABon 06-0 THYR PEROX AB < 9 Normal 0-34 [facility] Comment on above: Performed By: #### L 100.0100, L501.77569, L501.9310, L506.0400, L500.4050, L3300.1750, L506.1001, L3100.5170, L3300.6900, L503.0106, L3100.5310, L501.9520, L501.9187, L3100.5060, L3100.5400 ####[facility] [address] [place], [place], [phone] Free T3on 12-09-2024 Free T3 [Mass/Vol] 3.3 pg/mL Normal 2.18-3.98 [facility] Comment on above: Order Comment: ADD O N FT3 FT4PSA WAS JUST DONE 08/2024. CAN NOT DO AGAIN.N Performed By: #### L 100.0100, L501.93524, L501.9310, L506.0400, L500.4050, L3300.1750, L506.1001, L3100.5170, L3300.6900, L503.0106, L3100.5310, L501.9520, L501.9187, L3100.5060, L3100.5400 ####[facility] [address] [place], [place], [phone] T4 Free Directon 12-09-2024 T4 FREE DIRECT 1.10 ng/dL Normal 0.76-1.46 [facility] Comment on above: Order Comment: ADD O N FT3 FT4PSA WAS JUST DONE 08/2024. CAN NOT DO AGAIN.N Performed By: #### L 100.0100, L501.76920, L501.9310, L506.0400, L500.4050, L3300.1750, L506.1001, L3100.5170, L3300.6900, L503.0106, L3100.5310, L501.9520, L501.9187, L3100.5060, L3100.5400 ####[facility] [address] [place], [place], [phone] Absolute lymphocyte counton 12-08-2024 Lymphocytes Auto (Unsp spec) [#/Vol] 2.19 10*3/uL 0.83-4.51 [facility] Absolute neutrophil counton 12-08-2024 Neutrophils (Bld) [#/Vol] 2.2 10*3/uL 2.0-7.7 [facility] Anion gap in Serum or Plasma on 12-08-2024 Anion gap [Moles/Vol] 13 mmol/L 5-15 [facility] Automated lymphocyte count a s percentage of total leukocyteson 12-08-2024 Lymphocytes/100 WBC Auto (Unsp spec) 43.8 % High 19-41 [facility] BUN/creatinine ratioon 12-08 Urea nitrogen/Creatinine [Mass ratio] 16.3 mg/mg 10-20 [facility] Basophil percentageon 2024 Basophils/100 WBC (Bld) 1.0 % 0-1 [facility] Bilirubin, totalon Bilirubin [Mass/Vol] 0.35 mg/dL 0.00-1.30 [facility] CBC W/Diff, Automatedon 11-10 Absolute Lymph 2.19 X10 3/uL Normal 0.83-4.51 [facility] Comment on above: Performed By: #### L 100.0100, L501.23459, L501.9310, L506.0400, L500.4050, L3300.1750, L506.1001, L3100.5170, L3300.6900, L503.0106, L3100.5310, L501.9520, L501.9187, L3100.5060, L3100.5400 ####[facility] [address] [place], [address] Absolute Neut 2.2 X10 3/uL Normal 2.0-7.7 [facility] Comment on above: Performed By: #### L 100.0100, L501.09745, L501.9310, L506.0400, L500.4050, L3300.1750, L506.1001, L3100.5170, L3300.6900, L503.0106, L3100.5310, L501.9520, L501.9187, L3100.5060, L3100.5400 ####[facility] [address] [place], [address] Basophils/100 WBC (Bld) 1.0 % Normal 0-1 [facility] Comment on above: Performed By: #### L 100.0100, L501.87138, L501.9310, L506.0400, L500.4050, L3300.1750, L506.1001, L3100.5170, L3300.6900, L503.0106, L3100.5310, L501.9520, L501.9187, L3100.5060, L3100.5400 ####[facility] [address] [place], [address] Eosinophils/100 WBC (Bld) 1.6 % Normal 0-5 [facility] Comment on above: Performed By: #### L 100.0100, L501.69858, L501.9310, L506.0400, L500.4050, L3300.1750, L506.1001, L3100.5170, L3300.6900, L503.0106, L3100.5310, L501.9520, L501.9187, L3100.5060, L3100.5400 ####[facility] [address] [place], [address] Erythrocyte distribution width (RBC) [Ratio] 12.7 % Normal 11.6-14.6 [facility] Comment on above: Performed By: #### L 100.0100, L501.91575, L501.9310, L506.0400, L500.4050, L3300.1750, L506.1001, L3100.5170, L3300.6900, L503.0106, L3100.5310, L501.9520, L501.9187, L3100.5060, L3100.5400 ####[facility] [address] [place], [address] Hematocrit (Bld) [Volume fraction] 40.0 % Normal 40-54 [facility] Comment on above: Performed By: #### L 100.0100, L501.36439, L501.9310, L506.0400, L500.4050, L3300.1750, L506.1001, L3100.5170, L3300.6900, L503.0106, L3100.5310, L501.9520, L501.9187, L3100.5060, L3100.5400 ####[facility] [address] [place], [address] Hemoglobin (Bld) [Mass/Vol] 13.9 g/dL Normal 13.0-16.5 [facility] Comment on above: Performed By: #### L 100.0100, L501.27123, L501.9310, L506.0400, L500.4050, L3300.1750, L506.1001, L3100.5170, L3300.6900, L503.0106, L3100.5310, L501.9520, L501.9187, L3100.5060, L3100.5400 ####[facility] [address] [place], [address] IG% 0.400 Normal 0.0-0.9 [facility] Comment on above: Result Comment: IG% - Immature Granulocytes (promyelocytes, myelocytes and metamyelocytes) > 1% indicates that a LEFT SHIFT is Present. Performed By: #### L 100.0100, L501.73645, L501.9310, L506.0400, L500.4050, L3300.1750, L506.1001, L3100.5170, L3300.6900, L503.0106, L3100.5310, L501.9520, L501.9187, L3100.5060, L3100.5400 ####[facility] [address] [place], [address] Lymphocytes/100 WBC (Bld) 43.8 % High 19-41 [facility] Comment on above: Performed By: #### L 100.0100, L501.51984, L501.9310, L506.0400, L500.4050, L3300.1750, L506.1001, L3100.5170, L3300.6900, L503.0106, L3100.5310, L501.9520, L501.9187, L3100.5060, L3100.5400 ####[facility] [address] [place], [address] MCH (RBC) [Entitic mass] 30.1 pg Normal 27.0-32.0 [facility] Comment on above: Performed By: #### L 100.0100, L501.31686, L501.9310, L506.0400, L500.4050, L3300.1750, L506.1001, L3100.5170, L3300.6900, L503.0106, L3100.5310, L501.9520, L501.9187, L3100.5060, L3100.5400 ####[facility] [address] [place], [address] MCHC (RBC) [Mass/Vol] 34.8 g/dL Normal 32-36 [facility] Comment on above: Performed By: #### L 100.0100, L501.66833, L501.9310, L506.0400, L500.4050, L3300.1750, L506.1001, L3100.5170, L3300.6900, L503.0106, L3100.5310, L501.9520, L501.9187, L3100.5060, L3100.5400 ####[facility] [address] [place], [address] MCV (RBC) [Entitic vol] 86.6 fL Normal 80-94 [facility] Comment on above: Performed By: #### L 100.0100, L501.76233, L501.9310, L506.0400, L500.4050, L3300.1750, L506.1001, L3100.5170, L3300.6900, L503.0106, L3100.5310, L501.9520, L501.9187, L3100.5060, L3100.5400 ####[facility] [address] [place], [address] Monocytes/100 WBC (Bld) 9.0 % Normal 0-10 [facility] Comment on above: Performed By: #### L 100.0100, L501.66156, L501.9310, L506.0400, L500.4050, L3300.1750, L506.1001, L3100.5170, L3300.6900, L503.0106, L3100.5310, L501.9520, L501.9187, L3100.5060, L3100.5400 ####[facility] [address] [place], [address] Neutrophils/100 WBC (Bld) 44.2 % Low 47-70 [facility] Comment on above: Performed By: #### L 100.0100, L501.32817, L501.9310, L506.0400, L500.4050, L3300.1750, L506.1001, L3100.5170, L3300.6900, L503.0106, L3100.5310, L501.9520, L501.9187, L3100.5060, L3100.5400 ####[facility] [address] [place], [place], [phone](391) Nucleated RBC (Bld) [#/Vol] 0 10*3/uL Normal 0-5 [facility] Comment on above: Performed By: #### L 100.0100, L501.66087, L501.9310, L506.0400, L500.4050, L3300.1750, L506.1001, L3100.5170, L3300.6900, L503.0106, L3100.5310, L501.9520, L501.9187, L3100.5060, L3100.5400 ####[facility] [address] [facility] [place], [place], [phone](849) Platelet mean volume (Bld) [Entitic vol] 9.7 fL Normal 6.2-12.0 [facility] Comment on above: Performed By: #### L 100.0100, L501.11577, L501.9310, L506.0400, L500.4050, L3300.1750, L506.1001, L3100.5170, L3300.6900, L503.0106, L3100.5310, L501.9520, L501.9187, L3100.5060, L3100.5400 ####[facility] [address] [place], [place], [phone](416) Platelets (Bld) [#/Vol] 254 10*3/uL Normal 150-450 [facility] Comment on above: Performed By: #### L 100.0100, L501.07133, L501.9310, L506.0400, L500.4050, L3300.1750, L506.1001, L3100.5170, L3300.6900, L503.0106, L3100.5310, L501.9520, L501.9187, L3100.5060, L3100.5400 ####[facility] [address] [place], [place], [phone] RBC (Bld) [#/Vol] 4.62 10*6/uL Normal 4.6-6.2 [facility] Comment on above: Performed By: #### L 100.0100, L501.32367, L501.9310, L506.0400, L500.4050, L3300.1750, L506.1001, L3100.5170, L3300.6900, L503.0106, L3100.5310, L501.9520, L501.9187, L3100.5060, L3100.5400 ####[facility] [address] [place], [place], [phone] RDW SD 39.8 fl Normal 35.1-43.9 [facility] Comment on above: Performed By: #### L 100.0100, L501.27826, L501.9310, L506.0400, L500.4050, L3300.1750, L506.1001, L3100.5170, L3300.6900, L503.0106, L3100.5310, L501.9520, L501.9187, L3100.5060, L3100.5400 ####[facility] [address] [place], [place], [phone] WBC (Bld) [#/Vol] 5.0 10*3/uL Normal 4.4-11.0 [facility] Comment on above: Performed By: #### L 100.0100, L501.41156, L501.9310, L506.0400, L500.4050, L3300.1750, L506.1001, L3100.5170, L3300.6900, L503.0106, L3100.5310, L501.9520, L501.9187, L3100.5060, L3100.5400 ####[facility] [address] [place], [place], [phone] Carbon dioxide, total [Moles /volume] in Central venous bloodon 12-08-2024 CO2 [Moles/Vol] 20.6 mmol/L Low 21.0-32.0 [facility] Chloride assayon 12-08-2024 Chloride [Moles/Vol] 105 mmol/L 98-108 [facility] Comprehensive Metabolic Prof ilon 12-08-2024 Albumin [Mass/Vol] 4.6 g/dL Normal 3.5-5.0 [facility] Comment on above: Order Comment: PSA W JUST DONE 08/2024. CAN NOT DO AGAIN. Performed By: #### L 100.0100, L501.75862, L501.9310, L506.0400, L500.4050, L3300.1750, L506.1001, L3100.5170, L3300.6900, L503.0106, L3100.5310, L501.9520, L501.9187, L3100.5060, L3100.5400 ####[facility] [address] [place], [place], [phone](140) Albumin/Globulin [Mass ratio] 1.8 {ratio} Normal 0.9-2.4 [facility] Comment on above: Order Comment: PSA W JUST DONE 08/2024. CAN NOT DO AGAIN. Performed By: #### L 100.0100, L501.43750, L501.9310, L506.0400, L500.4050, L3300.1750, L506.1001, L3100.5170, L3300.6900, L503.0106, L3100.5310, L501.9520, L501.9187, L3100.5060, L3100.5400 ####[facility] [address] [place], [place], [phone] ALK PHOS 57 U/L Normal 40-129 [facility] Comment on above: Order Comment: PSA W JUST DONE 08/2024. CAN NOT DO AGAIN. Performed By: #### L 100.0100, L501.93128, L501.9310, L506.0400, L500.4050, L3300.1750, L506.1001, L3100.5170, L3300.6900, L503.0106, L3100.5310, L501.9520, L501.9187, L3100.5060, L3100.5400 ####[facility] [address] [place], [address] ALT [Catalytic activity/Vol] 24 U/L Normal <=46 [facility] Comment on above: Order Comment: PSA W JUST DONE 08/2024. CAN NOT DO AGAIN. Performed By: #### L 100.0100, L501.68161, L501.9310, L506.0400, L500.4050, L3300.1750, L506.1001, L3100.5170, L3300.6900, L503.0106, L3100.5310, L501.9520, L501.9187, L3100.5060, L3100.5400 ####[facility] [address] [place], [address] AST [Catalytic activity/Vol] 21 U/L Normal <=37 [facility] Comment on above: Order Comment: PSA W JUST DONE 08/2024. CAN NOT DO AGAIN. Performed By: #### L 100.0100, L501.33752, L501.9310, L506.0400, L500.4050, L3300.1750, L506.1001, L3100.5170, L3300.6900, L503.0106, L3100.5310, L501.9520, L501.9187, L3100.5060, L3100.5400 ####[facility] [address] [place], [address] Bilirubin [Mass/Vol] 0.35 mg/dL Normal 0.00-1.30 [facility] Comment on above: Order Comment: PSA W JUST DONE 08/2024. CAN NOT DO AGAIN. Performed By: #### L 100.0100, L501.17377, L501.9310, L506.0400, L500.4050, L3300.1750, L506.1001, L3100.5170, L3300.6900, L503.0106, L3100.5310, L501.9520, L501.9187, L3100.5060, L3100.5400 ####[facility] [address] [place], [place], [phone](669) BUN/CRE 16.3 RATIO Normal 10-20 [facility] Comment on above: Order Comment: PSA W JUST DONE 08/2024. CAN NOT DO AGAIN. Performed By: #### L 100.0100, L501.59350, L501.9310, L506.0400, L500.4050, L3300.1750, L506.1001, L3100.5170, L3300.6900, L503.0106, L3100.5310, L501.9520, L501.9187, L3100.5060, L3100.5400 ####[facility] [address] [place], [place], [phone](364) Calcium [Mass/Vol] 9.4 mg/dL Normal 7.6-11.0 [facility] Comment on above: Order Comment: PSA W JUST DONE 08/2024. CAN NOT DO AGAIN. Performed By: #### L 100.0100, L501.01071, L501.9310, L506.0400, L500.4050, L3300.1750, L506.1001, L3100.5170, L3300.6900, L503.0106, L3100.5310, L501.9520, L501.9187, L3100.5060, L3100.5400 ####[facility] [address] [place], [place], [phone](792) Chloride [Moles/Vol] 105 mmol/L Normal 98-108 [facility] Comment on above: Order Comment: PSA W JUST DONE 08/2024. CAN NOT DO AGAIN. Performed By: #### L 100.0100, L501.51964, L501.9310, L506.0400, L500.4050, L3300.1750, L506.1001, L3100.5170, L3300.6900, L503.0106, L3100.5310, L501.9520, L501.9187, L3100.5060, L3100.5400 ####[facility] [address] [place], [place], [id number] CO2 [Moles/Vol] 20.6 mmol/L Low 21.0-32.0 [facility] Comment on above: Order Comment: PSA W JUST DONE 08/2024. CAN NOT DO AGAIN. Performed By: #### L 100.0100, L501.62928, L501.9310, L506.0400, L500.4050, L3300.1750, L506.1001, L3100.5170, L3300.6900, L503.0106, L3100.5310, L501.9520, L501.9187, L3100.5060, L3100.5400 ####[facility] [address] [place], [place], [phone] Creatinine [Mass/Vol] 1.23 mg/dL High 0.70-1.20 [facility] Comment on above: Order Comment: PSA W JUST DONE 08/2024. CAN NOT DO AGAIN. Performed By: #### L 100.0100, L501.92021, L501.9310, L506.0400, L500.4050, L3300.1750, L506.1001, L3100.5170, L3300.6900, L503.0106, L3100.5310, L501.9520, L501.9187, L3100.5060, L3100.5400 ####[facility] [address] [place], [place], [phone] GAP 13 Normal 5-15 [facility] Comment on above: Order Comment: PSA W JUST DONE 08/2024. CAN NOT DO AGAIN. Performed By: #### L 100.0100, L501.56589, L501.9310, L506.0400, L500.4050, L3300.1750, L506.1001, L3100.5170, L3300.6900, L503.0106, L3100.5310, L501.9520, L501.9187, L3100.5060, L3100.5400 ####[facility] [address] [place], [place], [phone] GFR/1.73 sq M.predicted among non-blacks MDRD (S/P/Bld) [Vol rate/Area] 70 mL/min/{1.73_m2} Normal >60 [facility] Comment on above: Order Comment: PSA W JUST DONE 08/2024. CAN NOT DO AGAIN. Result Comment: mL/m in/1.73m2 CKD-EPI Creatinine Equation (2020) Performed By: #### L 100.0100, L501.50688, L501.9310, L506.0400, L500.4050, L3300.1750, L506.1001, L3100.5170, L3300.6900, L503.0106, L3100.5310, L501.9520, L501.9187, L3100.5060, L3100.5400 ####[facility] [address] [place], [place], [phone] Globulin (S) [Mass/Vol] 2.5 g/dL Normal 2.2-4.2 [facility] Comment on above: Order Comment: PSA W JUST DONE 08/2024. CAN NOT DO AGAIN. Performed By: #### L 100.0100, L501.04679, L501.9310, L506.0400, L500.4050, L3300.1750, L506.1001, L3100.5170, L3300.6900, L503.0106, L3100.5310, L501.9520, L501.9187, L3100.5060, L3100.5400 ####[facility] [address] [place], [place], [phone]) Glucose [Mass/Vol] 109 mg/dL High 70-99 [facility] Comment on above: Order Comment: PSA W JUST DONE 08/2024. CAN NOT DO AGAIN. Performed By: #### L 100.0100, L501.89822, L501.9310, L506.0400, L500.4050, L3300.1750, L506.1001, L3100.5170, L3300.6900, L503.0106, L3100.5310, L501.9520, L501.9187, L3100.5060, L3100.5400 ####[facility] [address] [place], [place], [phone]) Potassium [Moles/Vol] 4.2 mmol/L Normal 3.3-5.1 [facility] Comment on above: Order Comment: PSA W JUST DONE 08/2024. CAN NOT DO AGAIN. Performed By: #### L 100.0100, L501.75168, L501.9310, L506.0400, L500.4050, L3300.1750, L506.1001, L3100.5170, L3300.6900, L503.0106, L3100.5310, L501.9520, L501.9187, L3100.5060, L3100.5400 ####[facility] [address] [place], [place], [phone](904) Sodium [Moles/Vol] 139 mmol/L Normal 133-145 [facility] [facility] Comment on above: Order Comment: PSA W JUST DONE 08/2024. CAN NOT DO AGAIN. Performed By: #### L 100.0100, L501.54313, L501.9310, L506.0400, L500.4050, L3300.1750, L506.1001, L3100.5170, L3300.6900, L503.0106, L3100.5310, L501.9520, L501.9187, L3100.5060, L3100.5400 ####[facility] [address] [place], [place], [id number] T PROT 7.1 g/dL Normal 5.9-8.4 [facility] Comment on above: Order Comment: PSA W JUST DONE 08/2024. CAN NOT DO AGAIN. Performed By: #### L 100.0100, L501.86047, L501.9310, L506.0400, L500.4050, L3300.1750, L506.1001, L3100.5170, L3300.6900, L503.0106, L3100.5310, L501.9520, L501.9187, L3100.5060, L3100.5400 ####[facility] [address] [place], [place], [id number] Urea nitrogen [Mass/Vol] 20 mg/dL High 4-19 [facility] Comment on above: Order Comment: PSA W JUST DONE 08/2024. CAN NOT DO AGAIN. Performed By: #### L 100.0100, L501.29945, L501.9310, L506.0400, L500.4050, L3300.1750, L506.1001, L3100.5170, L3300.6900, L503.0106, L3100.5310, L501.9520, L501.9187, L3100.5060, L3100.5400 ####[facility] [address] [place], [place], [phone] Eosinophil percentageon 05-3 Eosinophils/100 WBC (Bld) 1.6 % 0-5 [facility] Erythrocyte distribution wid th ratioon 12-08-2024 Erythrocyte distribution width (RBC) [Ratio] 12.7 % 11.6-14.6 [facility] Erythrocyte distribution wid th standard deviationon 12-08-2024 Erythrocyte distribution width (RBC) [Ratio] 39.8 fl 35.1-43.9 [facility] Estradiolon 12-08-2024 ESTRADIOL 24.1 pg/mL Normal [facility] Comment on above: Order Comment: PSA W JUST DONE 08/2024. CAN NOT DO AGAIN. Result Comment: MALE S ADULT MALE: 10-40 pg/mL MANISH STAGES MEAN AGE REFERENCE RANGES Stage I(>14 days and prepubertal) 7.1 years Undetectable-13 pg/mL Stage II 12.1 years Undetectable-16 pg/mL Stage III 13.6 years Undetectable-26 pg/mL Stage IV 15.1 years Undetectable-38 pg/mL Stage V 18 years 10-40 pg/mL Puberty onset (transition from Manish stage I to Manish Stage II) occurs for boys at a median age of 11.5 (+/- 2) years. For boys, there is no proven relationship between puberty onset and body weight or ethnic origin. Progression through Manish stages is variable. Manish stage V (adult) should be reached by age 18. Performed By: #### L 100.0100, L501.71484, L501.9310, L506.0400, L500.4050, L3300.1750, L506.1001, L3100.5170, L3300.6900, L503.0106, L3100.5310, L501.9520, L501.9187, L3100.5060, L3100.5400 ####[facility] [address] [place], [place], [id number] Free T3on 12-08-2024 Free T3 [Mass/Vol] 3.3 pg/mL 2.18-3.98 [facility] Free testosterone percentage on 12-08-2024 Testosterone Free/Testosterone.total [Mass fraction] 3.13 % 1.50-4.20 [facility] Glomerular filtration rate ( GFR) estimation/1.73 sq m using serum, plasma, or whole bon 12-08-2024 GFR/1.73 sq M.predicted among non-blacks MDRD (S/P/Bld) [Vol rate/Area] 70 mL/min/{1.73_m2} >60 [facility] Comment on above: mL/min/1.73m2 CKD-EP I Creatinine Equation (2020) Hematocrit Auto (Bld) [Volum e fraction]on 12-08-2024 Hematocrit (Bld) [Volume fraction] 40.0 % 40-54 [facility] Hemoglobin measurementon Hemoglobin (Bld) [Mass/Vol] 13.9 g/dL 13.0-16.5 [facility] Immature granulocytes/100 WB C Auto (Bld)on 12-08-2024 Immature granulocytes/100 WBC (Bld) 0.400 % 0.0-0.9 [facility] Comment on above: IG% - Immature Granu locytes (promyelocytes, myelocytes and metamyelocytes) > 1% indicates that a LEFT SHIFT is Present. L501.9187on 12-08-2024 T3 Total 1.02 ng/mL Normal 0.80-2.00 [facility] Comment on above: Order Comment: PSA W JUST DONE 08/2024. CAN NOT DO AGAIN. Performed By: #### L 100.0100, L501.47765, L501.9310, L506.0400, L500.4050, L3300.1750, L506.1001, L3100.5170, L3300.6900, L503.0106, L3100.5310, L501.9520, L501.9187, L3100.5060, L3100.5400 ####[facility] [address] [place], [place], [id number] LH ser/plason 12-08-2024 Lutropin Qn 7.4 m[IU]/mL [facility] Comment on above: FEMALE:Follicular: 1 .9-12.5 mIU/mLMidcycle: 8.7-76.3 mIU/mLLuteal: 0.5-16.9 mIU/mLPost Menopause: 15.9-54.0 mIU/mLMALE:20-70 Years: 1.5-9.3 mIU/mL>70 Years: 3.1-34.6 mIU/mL Laboratory - Chemistry and C hemistry - challengeon 12-08-2024 AST [Catalytic activity/Vol] 21 U/L <38 [facility] Luteinizing Hormoneon 2024 LH 7.4 mIU/mL Normal [facility] Comment on above: Order Comment: PSA W JUST DONE 08/2024. CAN NOT DO AGAIN. Result Comment: FEMA LE: Follicular: 1.9-12.5 mIU/mL Midcycle: 8.7-76.3 mIU/mL Luteal: 0.5-16.9 mIU/mL Post Menopause: 15.9-54.0 mIU/mL MALE: 20-70 Years: 1.5-9.3 mIU/mL >70 Years: 3.1-34.6 mIU/mL Performed By: #### L 100.0100, L501.22812, L501.9310, L506.0400, L500.4050, L3300.1750, L506.1001, L3100.5170, L3300.6900, L503.0106, L3100.5310, L501.9520, L501.9187, L3100.5060, L3100.5400 ####[facility] [address] [place], [address] MCV (mean corpuscular volume ) determinationon 12-08-2024 MCV (RBC) [Entitic vol] 86.6 fL 80-94 [facility] Mean corpuscular hemoglobin (MCH) determinationon 12-08-2024 MCH (RBC) [Entitic mass] 30.1 pg 27.0-32.0 [facility] Mean corpuscular hemoglobin concentration (MCHC) determinationon 12-08-2024 MCHC (RBC) [Mass/Vol] 34.8 g/dL 32-36 [facility] Mean platelet volume determi nationon 12-08-2024 Platelet mean volume (Bld) [Entitic vol] 9.7 fL 6.2-12.0 [facility] Monocyte percentageon 2024 Monocytes/100 WBC (Bld) 9.0 % 0-10 [facility] Neutrophil percentageon 11-10 Neutrophils/100 WBC (Bld) 44.2 % Low 47-70 [facility] Nucleated red blood cell per centageon 12-08-2024 Nucleated RBC/100 WBC (Bld) [Ratio] 0 % 0-5 [facility] Platelet counton 12-08-2024 Platelets (Bld) [#/Vol] 254 10*3/uL 150-450 [facility] Potassium measurement (mass/ volume)on 12-08-2024 Potassium (Unsp spec) [Mass/Vol] 4.2 mmol/L 3.3-5.1 [facility] RBC Auto (Bld) [#/Vol]on RBC (Bld) [#/Vol] 4.62 10*6/uL 4.6-6.2 [facility] Serum creatinine measurement (mass/volume)on 12-08-2024 Creatinine [Mass/Vol] 1.23 mg/dL High 0.70-1.20 [facility] Serum globulin measurementon 12-08-2024 Globulin (S) [Mass/Vol] 2.5 g/dL 2.2-4.2 [facility] Serum glucose measurement (m ass/volume)on 12-08-2024 Glucose [Mass/Vol] 109 mg/dL High 70-99 [facility] Serum or plasma alanine quinonez otransferase (ALT) measurementon 12-08-2024 ALT [Catalytic activity/Vol] 24 U/L <47 [facility] Serum or plasma albumin leni urement (mass/volume)on 12-08-2024 Albumin [Mass/Vol] 4.6 g/dL 3.5-5.0 [facility] Serum or plasma albumin/glob ulin mass ratioon 12-08-2024 Albumin/Globulin [Mass ratio] 1.8 {ratio} 0.9-2.4 [facility] Serum or plasma alkaline soto sphatase measurementon 12-08-2024 ALP [Catalytic activity/Vol] 57 U/L 40-129 [facility] Serum or plasma calcium leni urement (mass/volume)on 12-08-2024 Calcium [Mass/Vol] 9.4 mg/dL 7.6-11.0 [facility] Serum or plasma estradiol me asurement after follitropin dose (mass/volume)on 12-08-2024 E2 post dose follitropin [Mass/Vol] 24.1 pg/mL [facility] Comment on above: MALES ADULT MALE: 10 -40 pg/mL MANISH STAGES MEAN AGE REFERENCE RANGES Stage I(>14 days and prepubertal) 7.1 years Undetectable-13 pg/mL Stage II 12.1 years Undetectable-16 pg/mL Stage III 13.6 years Undetectable-26 pg/mL Stage IV 15.1 years Undetectable-38 pg/mL Stage V 18 years 10-40 pg/mL Puberty onset (transition from Manish stage I to Manish Stage II) occurs for boys at a median age of 11.5 (+/- 2) years. For boys, there is no proven relationship between puberty onset and body weight or ethnic origin. Progression through Manish stages is variable. Manish stage V (adult) should be reached by age 18. Serum or plasma free testost erone measurement (mass/volume)on 12-08-2024 Testosterone Free [Mass/Vol] 9.23 ng/dL 5.00-21.00 [facility] Serum or plasma prolactin me asurement (mass/volume)on 12-08-2024 Prolactin [Mass/Vol] 6.3 ng/mL 3.6-25.2 [facility] Serum or plasma sex hormone binding globulin measurement (moles/volume)on 12-08-2024 Sex hormone binding globulin [Moles/Vol] 19.2 nmol/L Low 19.3-76.4 [facility] Comment on above: Performed at: [address] [id number] Director: Dino Garcia PhD, Phone: [phone] at: - [facility] [id number] Director: Carrol Hendrix MD, Phone: [phone] Serum or plasma thyroperoxid ase antibody assay (units/volume)on 12-08-2024 TPO Ab Qn [IU]/mL 0-34 [facility] Serum or plasma triiodothyro nine (T3) measurement (mass/volume)on 12-08-2024 T3 [Mass/Vol] 1.02 ng/mL 0.80-2.00 [facility] Serum or plasma urea nitroge n measurement (mass/volume)on 12-08-2024 Urea nitrogen [Mass/Vol] 20 mg/dL High 4-19 [facility] Sodium levelon 12-08-2024 Sodium [Moles/Vol] 139 mmol/L 133-145 [facility] T4 Total, Thyroxinon 025 T4 [Mass/Vol] 5.8 ug/dL Normal 4.5-12.1 [facility] Comment on above: Order Comment: PSA W JUST DONE 08/2024. CAN NOT DO AGAIN. Performed By: #### L 100.0100, L501.21286, L501.9310, L506.0400, L500.4050, L3300.1750, L506.1001, L3100.5170, L3300.6900, L503.0106, L3100.5310, L501.9520, L501.9187, L3100.5060, L3100.5400 ####[facility] [address] [place], [place], [phone] T4 freeon 12-08-2024 Free T4 [Mass/Vol] 1.10 ng/dL 0.76-1.46 [facility] TSH DL <= 0.005 mIU/L Qnon 0 - TSH Qn 2.510 uIU/mL 0.300-4.200 [facility] Testosterone, totalon 2024 Testosterone [Mass/Vol] 295 ng/dL 264-916 [facility] Comment on above: Adult male reference interval is based on a population ofhealthy nonobese males (BMI <30) between 19 and 39 yearsold. micheal Mix.al. JCEM 2017,102;9106-3433. PMID:[id number]. Thyroid Stim Hormone (TSH)on 12-08-2024 TSH 2.510 uIU/mL Normal 0.300-4.200 [facility] Comment on above: Order Comment: PSA W JUST DONE 08/2024. CAN NOT DO AGAIN. Performed By: #### L 100.0100, L501.26523, L501.9310, L506.0400, L500.4050, L3300.1750, L506.1001, L3100.5170, L3300.6900, L503.0106, L3100.5310, L501.9520, L501.9187, L3100.5060, L3100.5400 ####[facility] [address] [place], [place], [phone] Thyroxineon 12-08-2024 T4 [Mass/Vol] 5.8 ug/dL 4.5-12.1 [facility] Total proteinon 12-08-2024 Protein [Mass/Vol] 7.1 g/dL 5.9-8.4 [facility] Vitamin B12on 12-08-2024 Cobalamin (Vitamin B12) [Mass/Vol] 3576 pg/mL High 180-914 [facility] Comment on above: Order Comment: PSA W JUST DONE 08/2024. CAN NOT DO AGAIN. Performed By: #### L 100.0100, L501.04151, L501.9310, L506.0400, L500.4050, L3300.1750, L506.1001, L3100.5170, L3300.6900, L503.0106, L3100.5310, L501.9520, L501.9187, L3100.5060, L3100.5400 ####[facility] [address] [place], [place], [id number] Vitamin B12 ser/plason 12-08 Cobalamin (Vitamin B12) [Mass/Vol] 3576 pg/mL High 180-914 [facility] Vitamin D,25 Hydroxyon 12-08 Vitamin D 25-OH 65.5 ng/mL Normal 30-100 [facility] Comment on above: Order Comment: PSA W JUST DONE 08/2024. CAN NOT DO AGAIN. Result Comment: Pia min D Status Deficiency: <20 ng/mL (50nmol/L) Insufficiency: 20-30 ng/mL (50-75 nmol/L) Sufficiency: 30-100 ng/mL (75-250 nmol/L) Toxicity: >100 ng/mL (>250 nmol/L) Performed By: #### L 100.0100, L501.33070, L501.9310, L506.0400, L500.4050, L3300.1750, L506.1001, L3100.5170, L3300.6900, L503.0106, L3100.5310, L501.9520, L501.9187, L3100.5060, L3100.5400 ####[facility] [address] [place], [address] White blood cell (WBC) count on 12-08-2024 WBC (Bld) [#/Vol] 5.0 10*3/uL 4.4-11.0 [facility] XR CERV OTHER 4V AP/LAT/FLX/ EXTon 10-31-2024 IMPRESSION: Spondylosis Sales Development Representative: NOEL Transcribe Date/Time: Oct 31 2024 6:52A Dictated by : PASCUAL PAINTER MD This examination was interpreted and the report reviewed and electronically signed by: PASCUAL PAINTER MD on Oct 31 2024 6:53AM [facility] * * *Final Report* * * DATE OF EXAM: Oct 29 2024 8:48AM [id number] - XR CERVICAL 4V AP/LAT/FLX/EXT / PROCEDURE REASON: M50.10-Cervical disc disorder with radiculopathy * * * * Physician Interpretation * * * * PROCEDURE: Cervical spine INDICATION: Cervical disc disorder with radiculopathy .cervical disc disorder with radiculopathy TECHNIQUE: XR CERVICAL 4V AP/LAT/FLX/EXT COMPARISON: None FINDINGS: Straightening of the spine. Minimal C3-4 anterolisthesis. No abnormal translation with flexion or extension. Mild to moderate degenerative disc disease C4-C7, most prominent at C5-6. No significant facet arthrosis. Prevertebral soft tissues are within normal limits. [facility] Provider, Vivien Curry - 10/31/2024 * * *Final Report* * * DATE OF EXAM: Oct 29 2024 8:48AM [id number] - XR CERVICAL 4V AP/LAT/FLX/EXT / PROCEDURE REASON: M50.10-Cervical disc disorder with radiculopathy * * * * Physician Interpretation * * * * PROCEDURE: Cervical spine INDICATION: Cervical disc disorder with radiculopathy .cervical disc disorder with radiculopathy TECHNIQUE: XR CERVICAL 4V AP/LAT/FLX/EXT COMPARISON: None FINDINGS: Straightening of the spine. Minimal C3-4 anterolisthesis. No abnormal translation with flexion or extension. Mild to moderate degenerative disc disease C4-C7, most prominent at C5-6. No significant facet arthrosis. Prevertebral soft tissues are within normal limits. IMPRESSION IMPRESSION: Spondylosis Sales Development Representative: NOEL Transcribe Date/Time: Oct 31 2024 6:52A Dictated by : PASCUAL PAINTER MD This examination was interpreted and the report reviewed and electronically signed by: PASCUAL PAINTER MD on Oct 31 2024 6:53AM EST [facility] XR CERV OTHER 4V AP/LAT/FLX/ EXTOrdered By: Ccwei Provider on 10-31-2024 [facility] CNOVon 10-29-2024 CNOV Office Visit (SPNSME ) GAEL VALERO ([id number]) 1970 M [facility] Date Time Provider Department 10/29/24 9:00 AM GIOVANNY MUELLER SPNSME During your visit today, we recorded the following information about you: Pulse Blood pressure Weight Height 80/minute 120/79 83.6 kg 1.753 m Giovanny Mueller MD 10/30/2024 7:11 AM Signed SPINE SURGERY NEW PATIENT PCP: No primary care provider on file. REFERRING PROVIDER: No referring provider defined for this encounter. Medical Decision Making: Problems: Moderate: 2+ stable chronic illnesses Data: Independent interpretation of test from other physician/QHCP Risk: Moderate: Moderate risk from testing/treatment Medical Decision Making Level: 4 - Moderate Assessment/Plan (M54.12) Radiculopathy, cervical region (primary encounter diagnosis) 1. Radiculopathy, cervical region (M54.12) - MRI reveals congenital spinal stenosis with moderate to severe foraminal narrowing at C5-C6 on the left side due to disc bulge and osteophyte formation. - Symptoms include pain, numbness, and tingling radiating to the left arm and hand, particularly affecting the C6 dermatome. - Previous treatments include physical therapy, epidural injections, and medications such as pregabalin and Cymbalta, with limited relief. - Recent improvement in pain levels from 7-8/10 to 4-5/10 noted after discontinuation of pregabalin. - Discussed surgical options, including anterior cervical discectomy and fusion (ACDF) and posterior foraminotomy. Explained risks and benefits, including potential for residual stiffness and recovery time of 4-6 weeks. - Recommended trial of a targeted transforaminal epidural steroid injection on the left side at C5-C6, to be performed by a skilled provider. - Advised against further physical therapy at this time, as minimal additional benefit is expected. - Patient understands and agrees with the plan to monitor symptoms and pursue injection therapy before considering surgical intervention. - Follow-up as needed based on symptom progression or recurrence. Patient specific-risk factors: No risk factor data indicating elevated risk for surgery due to smoking, diabetes, or BMI identified in review of available information in chart Subjective Chief Complaint: History of Present Illness: Gael is a 54-year-old male presenting for evaluation of neck and left arm pain. Gael, who is right-hand dominant, reports a recurrence of neck and left arm pain that began approximately eight months ago. He describes the pain as similar to an episode he experienced over 25 years ago, which was diagnosed as bulging discs and successfully treated with physical therapy. The current pain began without any identifiable trigger and has progressively worsened, causing difficulty turning his head in all directions. He describes the pain as feeling like somebody was shoving a knife in my neck. He has undergone physical therapy and traction without relief and has received two injections, including an epidural in June, which provided only temporary relief. He was prescribed pregabalin and Cymbalta but discontinued Cymbalta due to difficulty focusing. He has been off pregabalin for about two weeks due to insurance issues and reports some improvement in his symptoms during this time, with pain decreasing from a consistent 7-8/10 to 4-5/10. He also notes a reduction in burning sensations. He continues to experience numbness, tingling, and itching in his left arm, particularly affecting the thumb and index finger. He has not undergone any spine surgery and does not report any problems with his legs. He does not smoke. 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 He only goes out into the field for major incidents. The pain has affected his ability to perform tasks such as typing. 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 Neck: (+) pain Musculoskeletal: (+) left arm pain, (-) leg pain Neurological: (+) left arm numbness, (+) left arm tingling, (+) left arm burning, (+) left arm itching Questionnaire Generated HPI Possible Spine-Related Symptoms: Pain;Numbness/tinglin g Symptom Onset:6 months to 1 year Symptom Location(s): Neck;Arm(s) Symptom Laterality: Left-sided Aggravating Factors: Sitting;Standing;Bend ing forward/backward;Banks ging position Alleviating Factors: Lying down;Exercising/stret miguel ángel/massage Non-Surgical Therapies Tried: Physical Therapy;Epidural steroid injections;NSAIDS;Mem brane stabilizers Prior Spine Surgery(s): They report no history of prior spine surgery. Image annotated by patient with symptom distribution: Details on Prior Non-Surgical Thera (more content not included)... Normal [facility] Inital Evaluation (1) - PTon 10-29-2024 Inital Evaluation (1) - PT [facility] [place] [address] / REHABILITATION SERVICES INITIAL EVALUATION MR#: [id number] Acct: [id number] Name: GAEL VALERO Rep #: [id number] : 1970 54 From: Pascual Yeager PT, Cert. T, [facility] Referring Dr.: Dr. Ottoniel Faria MD Status: REG RCR Insurance: [employer] SELF PAY INSURANCE Patient's Visit Information Visit Information Visit Information: GAEL VALERO is a 54 year old M referred to Physical Therapy by Dr. Ottoniel Faria MD with a diagnosis of RADICULOPATHY ,CERVICAL. Date of Evaluation: 10/29/24 Physical Therapist: Pascual Yeager PT, Cert MDT, OCS Visit Plan Frequency: 2x /Week Duration: 4 Weeks Plan: PT INTERVENTIONS CERVICAL ROM ( AVOID LEFT) ,POSTURAL EX'S ,SCAPULAR STRENGTHENING AND ACTIVITIES MODIFICATION Subjective Subjective: This 54 y/o male presents to physical therapy with radiculopathy cervical . Patient has had cervical pain for many years 25 years. Symptoms got better then [address] recommend PT which did not help include traction. Patient had MRI showed C3-4 spondylolisthesis with mild dynamic instability. At C3-C6 there is disc degeneration with stenosis with mild cord compression without significant cord signal changes. Multilevel foraminal stenosis noticed most severe at C3-4 on the left as well as C5-6 on the left. Tried injections did not help in Jul and Aug. symptoms better for [address] Ma[address] Faria ready for C3-6 ACDF but not ready at this point.Recommended PT and patient seen 2 nds opinion recommended lateral approach from his pain DR . After discussion with patient patient will proceed with PT. Patient stopped all pain medication lyrica. Over all pain is better. Pain located left burning and radiating paresthesia/tingling in left hand. Aggravating factors sitting , driving .rotation. Alleviating factors advil . Sleeping okay pain doesnt affects sleeping. Denies nausea/GARZA /dizziness/tinnitus. Patient condition affects QOL and job demands. Patient goals to decrease. VOACTION: [employer] SOCAIL: HOBBIES: pickle ball Pain Bilateral Neck: Pain Intensity (Out of 10): 5 Pain Intensity Range: 10 Objective Objective: POSTURE: mild forward posture PALPATION: tender paraspinals /UT /levator NEURO: denies paresthesia/tingling ,reflexes C5-6-7 2/3 CERVICAL ROM: flexion min loss ,rotation /lateral flexion mod right ,extension mod MMT: BUE grossly 4/5 LAG SCREWER STRENGTH: right 100#,left 70# Special Tests C/S Radiculapathy - Left Upper limb tension test: Negative C/S Radiculapathy - Right Upper limb tension test: Negative C/S Radiculapathy - Left Spurlings: Positive C/S Radiculapathy - Right Spurlings: Positive C/S Radiculapathy - Left Cervical distraction: Negative C/S Radiculapathy - Right Cervical distraction: Negative C/S Radiculapathy - Left Relief test: Negative C/S Radiculapathy - Right Relief test: Negative Sharp Lang: Negative Vertebral Artery Test: Negative Alar Ligament Test: Negative Balance/Special Test Scores Oswestry Neck Score: 16 Goals Goal 1:: Patient to be I with cervical Goal Time Frame: 4-6 Weeks Goal 2:: Patient to improve cervical ROM for function of recovery for driving Goal Time Frame: 4-6 Weeks Goal 3:: Patient to demonstrate 50% improvement with less pain and improved function. Goal Time Frame: 4-6 Weeks Goal 4:: Patient to improve neck oswestry score by 3-5 points to improve QOL Goal Time Frame: 4-6 Weeks Goal 5:: Patient to demonstrate 40% improvement with less pain and ADL's Goal Time Frame: 4-6 Weeks Rehabilitation Potential Physical Therapy Diagnosis: This patient has cervical stenosis foraminal left with pain with positioning and motion testing along with decrease posture thus benefit from skilled PT Rehabilitation Potential: Fair Anticipated Interventions Patient/Client Instruction: Educate patient on: Condition and Plan of Care For the Purpose of:: To decrease pain, To increase ROM, To improve muscle performance and motor function, To increase tolerance to activity/condition/po sition, To improve ability of physical actions for home/community/work/l eisure, To improve health of tissue, To decrease soft tissue restriction, To increase flexibility/ROM, To reduce risk of recurrence, To prevent re-injury and To improve tolerance to ADL's Therapeutic Exercise to Include: Strength training, Postural training, Flexibilty training and Scapular Strength/Stabilizatio n For the Purpose of:: To decrease pain, To improve muscle performance and motor function, To increase tolerance to activity/condition/po sition, To improve ability of physical actions for home/community/work/l eisure, To improve health of tissue, To decrease soft tissue restriction, To improve balance, To reduce risk (more content not included)... Normal [facility] XR CERV OTHER 4V AP/LAT/FLX/ EXTon 10-29-2024 Radiology Study observation (narrative) Lashell carter [facility] XR CERVICAL 4V AP/LAT/FLX/EX Ton 10-29-2024 XR CERVICAL 4V AP/LAT/FLX/EXT * * *Final Report* * * DATE OF EXAM: Oct 29 2024 8:48AM [address] [id number] - XR CERVICAL 4V AP/LAT/FLX/EXT / PROCEDURE REASON: M50.10-Cervical disc disorder with radiculopathy * * * * Physician Interpretation * * * * PROCEDURE: Cervical spine INDICATION: Cervical disc disorder with radiculopathy .cervical disc disorder with radiculopathy TECHNIQUE: XR CERVICAL 4V AP/LAT/FLX/EXT COMPARISON: None FINDINGS: Straightening of the spine. Minimal C3-4 anterolisthesis. No abnormal translation with flexion or extension. Mild to moderate degenerative disc disease C4-C7, most prominent at C5-6. No significant facet arthrosis. Prevertebral soft tissues are within normal limits. IMPRESSION: Spondylosis Sales Development Representative: NOEL Transcribe Date/Time: Oct 31 2024 6:52A Dictated by : PASCUAL PAINTER MD This examination was interpreted and the report reviewed and electronically signed by: PASCUAL PAINTER MD on Oct 31 2024 6:53AM EST [id number] [facility] Cerv Spine 2 or 3 Viewson Cerv Spine 2 or 3 Views [facility] Imaging Services [address] [place] [address] [id number] Cerv Spine 2 or 3 Views MR#: [id number] Acct: [id number] Name: GAEL VALERO Rep #: [id number] : 1970 M 54 From: Miley Rivero MD PCP: Dr. Prem Box, DO Status: DEP AMB Study: Cerv Spine 2 or 3 Views Date of Exam: 10/16/24 Exam# [id number] Ordering Dr: Isi Bunch PROCEDURE: CERV SPINE 2 OR 3 VIEWS 10/16/2024 REASON FOR EXAM: CHRONIC PAIN TECHNIQUE: 2 views of the cervical spine. COMPARISON: None available FINDINGS: Vertebrae: Vertebral body heights are well preserved. disc spaces: Preserved Alignment: Unremarkable soft tissues: Unremarkable Other: None available RAD/Cerv Spine 2 or 3 Views IMPRESSION: MILD CERVICAL DEGENERATIVE CHANGES. No dynamic instability on extension or flexion radiographs. Reading Location: [facility] CC: ISABELL Moreland; Dr. Prem Box DO Sales Development Representative: Signed Normal [facility] Orthopedic Visit Reporton Orthopedic Visit Report [facility] [address] [place] [address] [address] [place] [address] OFFICE VISIT Date of Service: 10/16/24 MR#: [id number] Acct: [id number] Name: GAEL VALERO Rep #: [id number] : 1970 Provider: Dr. Ottoniel Faria MD Age/Sex: 54/M Location: [facility] [place] Status: Signed Intake Vital Signs 04/10/23 09:34 10/16/24 14:44 Height 5 ft 9 in 5 ft 9 in Weight: 186 lb 8 oz BMI 27.5 Intake Visit Reasons: CERVICAL SPINE Chief Complaint: Cervical Spine Pain Accompanied by: Is patient in pain?: Yes Pain scale (1-10): 6 Allergies No Known Allergies Allergy (Verified 10/16/24 14:45) Medications ???Medication ???Instructions ???Recorded ???Confirmed ???Type ascorbate calcium (vitamin C) 500 500 mg PO QDAY 10/16/24 10/16/24 History mg tablet aspirin 81 mg tablet,delayed 81 mg PO QDAY 10/16/24 10/16/24 Hi story release cholecalciferol (vitamin D3) 25 25 mcg PO QDAY 10/16/24 10/16/24 H istory mcg (1,000 unit) capsule famotidine 40 mg tablet 40 mg PO QDAY 10/16/24 10/16/24 Hi story lisinopril 10 mg tablet 10 mg PO QDAY 10/16/24 10/16/24 Hi story magnesium glycinate mg PO 10/16/24 10/16/24 History mecobalamin (vitamin B12) 500 mcg mcg PO 10/16/24 10/16/24 History chewable tablet pregabalin 75 mg capsule 75 mg PO BID PRN 10/16/24 10/16/24 History rosuvastatin 10 mg tablet 10 mg PO QHS 10/16/24 10/16/24 His petrona [facility] Medical History Kidney stones Surgical History History of knee surgery Family History (Updated 10/16/24 @ 14:48 by Yaima Croft) Other Cancer Dementia Social History Smoking Status: Never smoker substance use type: does not use HPI CERVICAL SPINE Details: This documentation accurately reflects the service provided and the decisions made by me, Dr. Ottoniel Faria MD 10/16/24 1441. Part of today???s visit was documented by Yaima Castellano ATC, acting as scribe. AGEL VALERO is a 54 year old M here today for cervical spine pain. Patient states the neck has been bothering him for about 8-10 months and there was no injury. He states he had bulging discs about 25 years ago and it was taken care of with physical therapy. He describes the pain mostly on the left cervical spine. He states the pain goes down his shoulder and arm. He complains of numbness/tingling all the way down his left arm. He states this will go into the index finger and thumb. He complains of itching his hand between the webspace of the index finger and thumb. He will occasionally get a burning sensation in the back of the left shoulder. He states when he turns his head he can feel a click/pop in the neck. Patient has had [address] Ma and they were on 06/15/2024 and 08/29/2024. One was an epidural injection and the other was just a steroid or anti-inflammatory. He states the first injection gave about 2 weeks of relief. Patient did recently complete physical therapy at [facility] and did not give him any relief. Patient states he takes pregabalin for the pain. Patient had an MRI done on 05/24/2024 and this was done a couple weeks after finishing physical therapy. Patient has left-sided upper extremity radiculopathy going into the first webspace in the left hand. He denies any right-sided symptoms. He has early dexterity issues in the left hand. Denies any balance issues. Ortho Exam General General: Yes no acute distress Neurologic: Yes alert and Yes oriented x3 Spine SPINE TESTING CERVICAL THORACIC LUMBAR Musculoskeletal Strength 0=absent - 5=normal Details: Examination neck shows midline paraspinal tenderness more towards the left side. Neurologic valuation of upper extremity shows 5 x 5 power normal shows normal sensations in all dermatomes with Olya's negative. Romberg's is positive. Tandem gait shows mild imbalance. There is no hyperreflexia lower extremities. Coding Level of Care Code Off vis,new,level 4 Diagnoses Cervical myelopathy with cervical radiculopathy G95.9; M54.12 Time Spent (min) 45 Assessment and Plan Assessment and Plan (1) Cervical myelopathy with cervical radiculopathy: Status: Acute Orders: Orders Cerv Spine 2 or 3 Views 10/16/24 ISABELL Moreland M54.2 - Cervicalgia Referrals Physical Therapy Referral Dr. Ottoniel Faria MD M54.12 - Radiculopathy, cervical region Medications: Discontinued ondansetron Discontinued Reason: Pt no longer taking 4 mg PO Q6H PRN PRN 10 tabs 0RF Nausea oxycodone-acetaminoph en 5-325 mg Discontinued Reason: Pt no longer taking 1 TAB PO Q6H PRN 3 days PRN 12 TABLETS 0RF Pain N20.1 - Calculus of ureter Plan (more content not included)... Normal [facility] Basic Metabolic Profile (BMP )on 08-30-2024 BUN/CRE 16.8 RATIO Normal - [facility] Comment on above: Performed By: #### L 500.2500, L501.9910, L501.1400, L500.4100 ####[facility] [address] [place], [address] CA,Total 9.8 mg/dL Normal 8.5-10.1 [facility] Comment on above: Performed By: #### L 500.2500, L501.9910, L501.1400, L500.4100 ####[facility] [address] [place], [address] Chloride [Moles/Vol] 102 mmol/L Normal 98-107 [facility] Comment on above: Performed By: #### L 500.2500, L501.9910, L501.1400, L500.4100 ####[facility] [address] [place], [address] CO2 [Moles/Vol] 26.0 mmol/L Normal 21.0-32.0 [facility] Comment on above: Performed By: #### L 500.2500, L501.9910, L501.1400, L500.4100 ####[facility] [address] [place], [address] Creatinine [Mass/Vol] 1.31 mg/dL High 0.70-1.30 [facility] Comment on above: Result Comment: The validity of the calculated GFR GFRAA in patients over 70 years has not been determined. Clinical correlation is essential. Performed By: #### L 500.2500, L501.9910, L501.1400, L500.4100 ####[facility] [address] [place], [address] EST GFR - AA 74 mL/min Normal >60 [facility] Comment on above: Result Comment: Afri can [place] GFR Calc Performed By: #### L 500.2500, L501.9910, L501.1400, L500.4100 ####[facility] [address] [place], [address] GAP 8 Normal 5-15 [facility] Comment on above: Performed By: #### L 500.2500, L501.9910, L501.1400, L500.4100 ####[facility] [address] [place], [address] GFR/1.73 sq M.predicted among non-blacks MDRD (S/P/Bld) [Vol rate/Area] 61 mL/min/{1.73_m2} Normal >60 [facility] Comment on above: Result Comment: Non- GFR Calc Performed By: #### L 500.2500, L501.9910, L501.1400, L500.4100 ####[facility] [address] [place], [address] Glucose [Mass/Vol] 130 mg/dL High 74-106 [facility] Comment on above: Result Comment: Fast ing Glucose result greater than or equal to 126 mg/dL suggests DIABETES MELLITUS per A.D.A. criteria. Performed By: #### L 500.2500, L501.9910, L501.1400, L500.4100 ####[facility] [address] [place], [address] Potassium [Moles/Vol] 4.4 mmol/L Normal 3.5-5.1 [facility] Comment on above: Performed By: #### L 500.2500, L501.9910, L501.1400, L500.4100 ####[facility] [address] [place], [address] Sodium [Moles/Vol] 136 mmol/L Normal 136-145 [facility] Comment on above: Performed By: #### L 500.2500, L501.9910, L501.1400, L500.4100 ####[facility] [address] [place], [address] Urea nitrogen [Mass/Vol] 22 mg/dL High 7-18 [facility] Comment on above: Performed By: #### L 500.2500, L501.9910, L501.1400, L500.4100 ####[facility] [address] [place], [address] Blood urea nitrogen (BUN)/cr eatinine ratioOrdered By: Prem Box on 08-30-2024 Urea nitrogen/Creatinine [Mass ratio] 16.8 mg/mg 04-29 [facility] Carbon dioxide measurementOr dered By: Prem Box on 08-30-2024 CO2 [Moles/Vol] 26.0 mmol/L 21.0-32.0 [facility] Chloride measurementOrdered By: Prem Box on 08-30-2024 Chloride [Moles/Vol] 102 mmol/L 98-107 [facility] Glomerular filtration rate ( GFR) estimationOrdered By: Prem Box on 08-30-2024 GFR/1.73 sq M.predicted among non-blacks MDRD (S/P/Bld) [Vol rate/Area] 61 mL/min/{1.73_m2} >60 [facility] Comment on above: Non- GFR Calc Glucose measurementOrdered B y: Prem Box on 08-30-2024 Glucose [Mass/Vol] 130 mg/dL High 74-106 [facility] Comment on above: Fasting Glucose resu lt greater than or equal to 126 mg/dL suggests DIABETES MELLITUS per A.D.A. criteria. High density lipoprotein (HD L) measurementOrdered By: Prem Box on 08-30-2024 Cholesterol in HDL [Mass/Vol] 54 mg/dL >40 [facility] Comment on above: The drugs N-Acetylcy steine and Metamizole may falsely depress this assay. Reference Range HDL <40 mg/dL Low HDL Cholesterol HDL >or= 60 mg/dL High HDL Cholesterol Lipid Profileon 08-30-2024 Cholesterol [Mass/Vol] 173 mg/dL Normal 200 [facility] Comment on above: Result Comment: <200 mg/dL Desirable 200-240 mg/dL Borderline >240 mg/dL High Risk Performed By: #### L 500.2500, L501.9910, L501.1400, L500.4100 ####[facility] [address] [place], [address] Cholesterol in HDL [Mass/Vol] 54 mg/dL Normal [facility] Comment on above: Result Comment: The drugs N-Acetylcysteine and Metamizole may falsely depress this assay. Reference Range HDL <40 mg/dL Low HDL Cholesterol HDL >or= 60 mg/dL High HDL Cholesterol Performed By: #### L 500.2500, L501.9910, L501.1400, L500.4100 ####[facility] [address] [place], [address] Cholesterol in LDL [Mass/Vol] 105 mg/dL Normal 0-130 [facility] Comment on above: Performed By: #### L 500.2500, L501.9910, L501.1400, L500.4100 ####[facility] [address] [place], [address] Cholesterol in VLDL [Mass/Vol] 14 mg/dL Normal 5-40 [facility] Comment on above: Performed By: #### L 500.2500, L501.9910, L501.1400, L500.4100 ####[facility] [address] [place], [address] Triglyceride [Mass/Vol] 71 mg/dL Normal [facility] Comment on above: Result Comment: The drugs N-Acetylcysteine and Metamizole may falsely depress this assay. Serum Triglycerides Reference Interval Normal <150 mg/dL Borderline high 150 - 199 mg/dL High 200 - 499 mg/dL Very High > or = 500 mg/dL Performed By: #### L 500.2500, L501.9910, L501.1400, L500.4100 ####[facility] [address] [place], [address] Low density lipoprotein (LDL ) cholesterol measurementOrdered By: Prem Box on 08-30-2024 Cholesterol in LDL [Mass/Vol] 105 mg/dL 0-130 [facility] PSA,Total - Annual Screenon 08-30-2024 PSA,TOT SCREEN 1.39 ng/mL Normal 0.00-4.00 [facility] Comment on above: Result Comment: This test was performed using the TPSA assay method for the [employer] chemistry system. Values obtained with different assay methods cannot be used interchangably. When changing PSA assays in the course of monitoring a patient, additional sequential testing should be carried out to confirm baseline values. Performed By: #### L 500.2500, L501.9910, L501.1400, L500.4100 ####[facility] [address] [place], [address] Potassium measurementOrdered By: Prem Box on 08-30-2024 Potassium [Moles/Vol] 4.4 mmol/L 3.5-5.1 [facility] Serum anion gap measurementO rdered By: Prem Box on 08-30-2024 Anion gap [Moles/Vol] 8 mmol/L 5-15 [facility] Serum or plasma calcium leni urement (mass/volume)Ordered By: Prem Box on 08-30-2024 Calcium [Mass/Vol] 9.8 mg/dL 8.5-10.1 [facility] Serum or plasma cholesterol measurement (mass/volume)Ordered By: Prem Box on 08-30-2024 Cholesterol [Mass/Vol] 173 mg/dL <200 [facility] Comment on above: <200 mg/dL Desirable 200-240 mg/dL Borderline >240 mg/dL High Risk Serum or plasma creatinine m easurement (mass/volume)Ordered By: Prem Box on 08-30-2024 Creatinine [Mass/Vol] 1.31 mg/dL High 0.70-1.30 [facility] Comment on above: The validity of the calculated GFR & GFRAA in patients over 70 years has not been determined. Clinical correlation is essential. Serum or plasma urea nitroge n measurement (mass/volume)Ordered By: Prem Box on 08-30-2024 Urea nitrogen [Mass/Vol] 22 mg/dL High 7-18 [facility] Serum or plasma uric acid me asurement (mass/volume)Ordered By: Prem Box on 08-30-2024 Urate [Mass/Vol] 7.2 mg/dL 3.5-7.2 [facility] Comment on above: The drugs N-Acetylcy steine and Metamizole may falsely depress this assay. Sodium levelOrdered By: Prem Box on 08-30-2024 Sodium [Moles/Vol] 136 mmol/L 136-145 [facility] Triglycerides measurementOrd ered By: Prem Box on 08-30-2024 Triglyceride [Mass/Vol] 71 mg/dL <199 [facility] Comment on above: The drugs N-Acetylcy steine and Metamizole may falsely depress this assay.Serum Triglycerides Reference Interval Normal <150 mg/dL Borderline high 150 - 199 mg/dL High 200 - 499 mg/dL Very High > or = 500 mg/dL Uric Acidon 08-30-2024 URIC 7.2 mg/dL Normal 3.5-7.2 [facility] Comment on above: Result Comment: The drugs N-Acetylcysteine and Metamizole may falsely depress this assay. Performed By: #### L 500.2500, L501.9910, L501.1400, L500.4100 ####[facility] [address] [place], [place], [id number] Very low density lipoprotein (VLDL) cholesterol measurementOrdered By: Prem Charu on 08-30-2024 Very low density lipoprotein (VLDL) cholesterol measurement 14 mg/dL 5-40 [facility] Inital Evaluation (1) - PTon 04-06-2024 Inital Evaluation (1) - PT [facility] [address] [place] [address] / REHABILITATION SERVICES INITIAL EVALUATION MR#: [id number] Acct: [id number] Name: GAEL VALERO Rep #: [id number] : 1970 53 From: Pipe Osullivan PT. MD [place], OCS Referring DrRic: NANI Archer Status: REG R CR Insurance: [employer] SELF PAY INSURANCE Patient's Visit Information Visit Information Visit Information: GAEL VALERO is a 53 year old M referred to Physical Therapy by NANI Archer with a diagnosis of CERVICALAGIA. Date of Evaluation: 04/06/24 Physical Therapist: Pascual Yeager PT, Cert T, OCS Visit Plan Frequency: 2x /Week Duration: 4 Weeks Plan: PT INTERVENTIONS ICTX 16#-25# X15MIN ,US ,MHP ,MANUAL THERAPY STM/MOBILIZATION C2-7 ,THORACIC ,POSTURAL EX'S AND GRADED ROM Subjective Subjective: This 53 y/o male presents to physical therapy with cervical pain. Patient developed 2 months noticed pain and paresthesia in arm and sharp pain in neck with certain movements extension. See Dr ira PT and had x-ray Reversal of the normal lordotic curve with mild cervical spondylosis from C4-5 through C6-7.. Aggravating factors rotation and side bending ,driving ,sitting at desks. Alleviating factors rest. Patient pain affects sleeping.Patient denies dizziness /nausea/GARZA. Patient has h/o cervical pain 20 years ago with MRI bulging disc. Patient pain affects QOL and function. Patient goals to decrease pain. 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 Pain Bilateral Neck: Pain Intensity (Out of 10): 7 Pain Intensity Range: 10 Objective Objective: POSTURE: reduce lordosis ,spine straight NEURO: occasionally paresthesia/tingling ,reflexes C5-6-7 2/3 PALAPION: tender UT/levator/scalenes BUE AROM: WFL MMT: BUE 5/5 CERVICAL ROM: flexion min loss ,extension severe loss pain ,lateral flexion/rotation mod right ,min mod left ,retraction mod loss apin Special Tests C/S Radiculapathy - Left Upper limb tension test: Negative C/S Radiculapathy - Right Upper limb tension test: Negative C/S Radiculapathy - Left Spurlings: Positive C/S Radiculapathy - Right Spurlings: Positive C/S Radiculapathy - Left Cervical distraction: Negative C/S Radiculapathy - Right Cervical distraction: Negative C/S Radiculapathy - Left Relief test: Negative C/S Radiculapathy - Right Relief test: Negative Sharp Lang: Negative Vertebral Artery Test: Negative Alar Ligament Test: Negative Cervical Sitting: Protrusion - Mechanical Response: No effect Cervical Sitting: Protrusion - Symptoms During Testing: No effect Cervical Sitting: Protrusion - Symptoms After Testing: No effect Cervical Sitting: Retraction - Mechanical Response: No effect Cervical Sitting: Retraction - Symptoms During Testing: Increases Cervical Sitting: Retraction - Symptoms After Testing: Worse Cervical Sitting: Retraction-Extension - Mechanical Response: No effect Cerv Sitting: Retraction-Extension - Symptoms During Testing: Increases Cerv Sitting: Retraction-Extension - Symptoms After Testing: No worse Cervical Sitting: Sidebend Right - Mechanical Response: No effect Cervical Sitting: Sidebend Right - Symptoms During Testing: Increases Cervical Sitting: Sidebend Right - Symptoms After Testing: No worse Cervical Sitting: Sidebend Left - Mechanical Response: No effect Cervical Sitting: Sidebend Left - Symptoms During Testing: Increases Cervical Sitting: Sidebend Left - Symptoms After Testing: No worse Cervical Sitting: Rotation Right - Mechanical Response: No effect Cervical Sitting: Rotation Right - Symptoms During Testing: Increases Cervical Sitting: Rotation Right - Symptoms After Testing: No worse Cervical Sitting: Rotation Left - Mechanical Response: No effect Cervical Sitting: Rotation Left - Symptoms During Testing: Increases Cervical Sitting: Rotation Left - Symptoms After Testing: No worse Cervical Sitting: Flexion - Mechanical Response: No effect Cervical Sitting: Flexion - Symptoms During Testing: No effect Cervical Sitting: Flexion - Symptoms After Testing: No effect Cervical Lying: Retraction - Mechanical Response: No effect Cervical Lying: Retraction - Symptoms During Testing: Increases Cervical Lying: Retraction - Symptoms After Testing: No worse Balance/Special Test Scores Oswestry Neck Score: 10 Goals Goal 1:: Patient to be I with HEP for neck Goal Time Frame: 4-6 Weeks Goal 2:: Patient to demonstrate 50% improvement with increase motion and less pain for function Goal Time Frame: 4-6 Weeks Goal 3:: Patient to improve cervical ROM for function of recovery to turn for driving and job demands. Goal Time Frame: 4-6 Weeks Goal 4:: Patient to improve neck oswestry score by 5 point to improve QOL and function. Goal Time Frame: 4-6 Weeks Rehabilitation Potential Physical T (more content not included)... Normal [facility] ANTINUCLEAR ANTIBODIES DIREC Ton 04-02-2024 ASTON,DIRECT Negative Normal Negative [facility] Comment on above: Result Comment: Perf ormed at: [facility] Medical [employer] [id number] Management Expert: Dino Garcia PhD, Phone: [phone] Performed By: #### L 3100.0557, L501.6710, L505.7010, L100.0100, L4600.0100, L500.4050, L101.9900 ####[facility] [address] [place], [address] CCP IgG Antibodieson 024 CCP IgG Ab. 6 units Normal 0-19 [facility] Comment on above: Result Comment: Nega tive <20 Weak positive 20 - 39 Moderate positive 40 - 59 Strong positive >59 Performed at: [facility] Medical [employer] [id number] Management Expert: Dino Garcia PhD, Phone: [phone] Performed By: #### L 3100.5475, L501.6710, L505.7010, L100.0100, L4600.0100, L500.4050, L101.9900 ####[facility] [address] [place], [address] Rheumatoid Factoron 03-30-20 24 RHEUMATOID FAC < 10.0 Normal <15 [facility] Comment on above: Order Comment: CBCD Performed By: #### L 3100.5475, L501.6710, L505.7010, L100.0100, L4600.0100, L500.4050, L101.9900 #### [facility] [address] [place], [place], [id number] CBC W/Diff, Automatedon 03-11 Absolute Lymph 2.10 X10 3/uL Normal 0.83-4.51 [facility] Comment on above: Performed By: #### L 3100.5475, L501.6710, L505.7010, L100.0100, L4600.0100, L500.4050, L101.9900 #### [facility] [address] [place], [place], [id number] Absolute Neut 3.1 X10 3/uL Normal 2.0-7.7 [facility] Comment on above: Performed By: #### L 3100.5475, L501.6710, L505.7010, L100.0100, L4600.0100, L500.4050, L101.9900 #### [facility] [address] [place], [place], [phone] Basophils/100 WBC (Bld) 1.1 % High 0-1 [facility] Comment on above: Performed By: #### L 3100.5475, L501.6710, L505.7010, L100.0100, L4600.0100, L500.4050, L101.9900 #### [facility] [address] [place], [address] Eosinophils/100 WBC (Bld) 1.6 % Normal 0-5 [facility] Comment on above: Performed By: #### L 3100.5475, L501.6710, L505.7010, L100.0100, L4600.0100, L500.4050, L101.9900 #### [facility] [address] [place], [address] Erythrocyte distribution width (RBC) [Ratio] 12.9 % Normal 11.6-14.6 [facility] Comment on above: Performed By: #### L 3100.5475, L501.6710, L505.7010, L100.0100, L4600.0100, L500.4050, L101.9900 #### [facility] [address] [place], [address] Hematocrit (Bld) [Volume fraction] 42.1 % Normal 40-54 [facility] Comment on above: Performed By: #### L 3100.5475, L501.6710, L505.7010, L100.0100, L4600.0100, L500.4050, L101.9900 #### [facility] [address] [place], [address] Hemoglobin (Bld) [Mass/Vol] 13.8 g/dL Normal 13.0-16.5 [facility] Comment on above: Performed By: #### L 3100.5475, L501.6710, L505.7010, L100.0100, L4600.0100, L500.4050, L101.9900 #### [facility] [address] [place], [address] IG% 0.700 Normal 0.0-0.9 [facility] Comment on above: Result Comment: IG% - Immature Granulocytes (promyelocytes, myelocytes and metamyelocytes) > 1% indicates that a LEFT SHIFT is Present. Performed By: #### L 3100.5475, L501.6710, L505.7010, L100.0100, L4600.0100, L500.4050, L101.9900 #### [facility] [address] [place], [address] Lymphocytes/100 WBC (Bld) 36.9 % Normal 19-41 [facility] Comment on above: Performed By: #### L 3100.5475, L501.6710, L505.7010, L100.0100, L4600.0100, L500.4050, L101.9900 #### [facility] [address] [place], [address] MCH (RBC) [Entitic mass] 29.4 pg Normal 27.0-32.0 [facility] Comment on above: Performed By: #### L 3100.5475, L501.6710, L505.7010, L100.0100, L4600.0100, L500.4050, L101.9900 #### [facility] [address] [place], [address] MCHC (RBC) [Mass/Vol] 32.8 g/dL Normal 32-36 [facility] Comment on above: Performed By: #### L 3100.5475, L501.6710, L505.7010, L100.0100, L4600.0100, L500.4050, L101.9900 #### [facility] [address] [place], [address] MCV (RBC) [Entitic vol] 89.8 fL Normal 80-94 [facility] Comment on above: Performed By: #### L 3100.5475, L501.6710, L505.7010, L100.0100, L4600.0100, L500.4050, L101.9900 #### [facility] [address] [place], [address] Monocytes/100 WBC (Bld) 5.3 % Normal 0-10 [facility] Comment on above: Performed By: #### L 3100.5475, L501.6710, L505.7010, L100.0100, L4600.0100, L500.4050, L101.9900 #### [facility] [address] [place], [address] Neutrophils/100 WBC (Bld) 54.4 % Normal 47-70 [facility] Comment on above: Performed By: #### L 3100.5475, L501.6710, L505.7010, L100.0100, L4600.0100, L500.4050, L101.9900 #### [facility] [address] [place], [address] Nucleated RBC (Bld) [#/Vol] 0 10*3/uL Normal 0-5 [facility] Comment on above: Performed By: #### L 3100.5475, L501.6710, L505.7010, L100.0100, L4600.0100, L500.4050, L101.9900 #### [facility] [address] [place], [address] Platelet mean volume (Bld) [Entitic vol] 10.4 fL Normal 6.2-12.0 [facility] Comment on above: Performed By: #### L 3100.5475, L501.6710, L505.7010, L100.0100, L4600.0100, L500.4050, L101.9900 #### [facility] [address] [place], [address] Platelets (Bld) [#/Vol] 287 10*3/uL Normal 150-450 [facility] Comment on above: Performed By: #### L 3100.5475, L501.6710, L505.7010, L100.0100, L4600.0100, L500.4050, L101.9900 #### [facility] [address] [place], [address] RBC (Bld) [#/Vol] 4.69 10*6/uL Normal 4.6-6.2 [facility] Comment on above: Performed By: #### L 3100.5475, L501.6710, L505.7010, L100.0100, L4600.0100, L500.4050, L101.9900 #### [facility] [address] [place], [address] RDW SD 42.0 fl Normal 35.1-43.9 [facility] Comment on above: Performed By: #### L 3100.5475, L501.6710, L505.7010, L100.0100, L4600.0100, L500.4050, L101.9900 #### [facility] [address] [place], [address] WBC (Bld) [#/Vol] 5.7 10*3/uL Normal 4.4-11.0 [facility] Comment on above: Performed By: #### L 3100.5475, L501.6710, L505.7010, L100.0100, L4600.0100, L500.4050, L101.9900 #### [facility] [address] [place], [address] CRPon 03-29-2024 C-REACTIVE PROT < 2.90 Normal 0.0-3.0 [facility] Comment on above: Order Comment: CBCD Result Comment: C-Re active Protein (CRP) provides useful information for the diagnosis, therapy and monitoring of inflammatory processes and associated diseases. For the evaluation of Relative Risk for Cardiovascular Disease, a High Sensitivity CRP (HSCRP) should be ordered. Performed By: #### L 3100.5475, L501.6710, L505.7010, L100.0100, L4600.0100, L500.4050, L101.9900 #### [facility] [address] [place], [address] Cerv Spine 4 or 5 Viewson Cerv Spine 4 or 5 Views [facility] [address] [place] [address] Cerv Spine 4 or 5 Views MR#: [id number] Acct: [id number] Name: GAEL VALERO Rep #: [id number] : 1970 M 53 From: Hema Dubon MD PCP: Dr. Prem Box, Status: REG CLI Study: Cerv Spine 4 or 5 Views Date of Exam: 03/29/24 Exam# [id number] Ordering Dr: Christi Fernando [id number] STUDY: X-RAY - CERVICAL SPINE REASON FOR EXAM: Male, 53 years old. Assess vertebral alignment. TECHNIQUE: 5 view(s) of the cervical spine were obtained. COMPARISON: None FINDINGS: Normal anterior atlantoaxial articulation. Normal odontoid process. Reversal of the normal lordotic curve. Diffuse moderate uncovertebral and facet sclerosis. Intervertebral disc space narrowing at C4-5, C5-6 and C6-7. Normal visualized intervertebral foramen. Normal soft tissues. RAD/Cerv Spine 4 or 5 Views IMPRESSION: Reversal of the normal lordotic curve with mild cervical spondylosis from C4-5 through C6-7. Electronically Signed: Hema Dubon MD at 14:51 EDT , CC: NANI Fernando; Dr. Prem Box DO Sales Development Representative: Signed Normal [facility] Comprehensive Metabolic Prof ilon 03-29-2024 Albumin [Mass/Vol] 4.0 g/dL Normal 3.2-5.0 [facility] Comment on above: Order Comment: CBCD Performed By: #### L 3100.5475, L501.6710, L505.7010, L100.0100, L4600.0100, L500.4050, L101.9900 #### [facility] [address] [place], [address] Albumin/Globulin [Mass ratio] 1.1 {ratio} Normal 0.9-2.4 [facility] Comment on above: Order Comment: CBCD Performed By: #### L 3100.5475, L501.6710, L505.7010, L100.0100, L4600.0100, L500.4050, L101.9900 #### [facility] [address] [place], [address] ALK P 57 U/L Normal 45-117 [facility] Comment on above: Order Comment: CBCD Performed By: #### L 3100.5475, L501.6710, L505.7010, L100.0100, L4600.0100, L500.4050, L101.9900 #### [facility] [address] [place], [address] ALT [Catalytic activity/Vol] 24 U/L Normal 16-61 [facility] Comment on above: Order Comment: CBCD Performed By: #### L 3100.5475, L501.6710, L505.7010, L100.0100, L4600.0100, L500.4050, L101.9900 #### [facility] [address] [place], [address] AST [Catalytic activity/Vol] 17 U/L Normal 15-37 [facility] Comment on above: Order Comment: CBCD Performed By: #### L 3100.5475, L501.6710, L505.7010, L100.0100, L4600.0100, L500.4050, L101.9900 #### [facility] [address] [place], [address] Bilirubin [Mass/Vol] 0.70 mg/dL Normal 0.20-1.00 [facility] Comment on above: Order Comment: CBCD Result Comment: For patients on eltrombopag therapy, use of Dimension [place] TBIL is not recommended. Performed By: #### L 3100.5475, L501.6710, L505.7010, L100.0100, L4600.0100, L500.4050, L101.9900 #### [facility] [address] [place], [address] BUN/CRE 12.1 RATIO Normal 10-20 [facility] Comment on above: Order Comment: CBCD Performed By: #### L 3100.5475, L501.6710, L505.7010, L100.0100, L4600.0100, L500.4050, L101.9900 #### [facility] [address] [place], [address] CA,Total 9.2 mg/dL Normal 8.5-10.1 [facility] Comment on above: Order Comment: CBCD Performed By: #### L 3100.5475, L501.6710, L505.7010, L100.0100, L4600.0100, L500.4050, L101.9900 #### [facility] [address] [place], [address] Chloride [Moles/Vol] 104 mmol/L Normal 98-107 [facility] Comment on above: Order Comment: CBCD Performed By: #### L 3100.5475, L501.6710, L505.7010, L100.0100, L4600.0100, L500.4050, L101.9900 #### [facility] [address] [place], [address] CO2 [Moles/Vol] 27.0 mmol/L Normal 21.0-32.0 [facility] Comment on above: Order Comment: CBCD Performed By: #### L 3100.5475, L501.6710, L505.7010, L100.0100, L4600.0100, L500.4050, L101.9900 #### [facility] [address] [place], [address] Creatinine [Mass/Vol] 1.32 mg/dL High 0.70-1.30 [facility] Comment on above: Order Comment: CBCD Result Comment: The validity of the calculated GFR GFRAA in patients over 70 years has not been determined. Clinical correlation is essential. Performed By: #### L 3100.5475, L501.6710, L505.7010, L100.0100, L4600.0100, L500.4050, L101.9900 #### [facility] [address] [place], [address] EST GFR - AA 73 mL/min Normal >60 [facility] Comment on above: Order Comment: CBCD Result Comment: Afri can [place] GFR Calc Performed By: #### L 3100.5475, L501.6710, L505.7010, L100.0100, L4600.0100, L500.4050, L101.9900 #### [facility] [address] [place], [address] GAP 7 Normal 5-15 [facility] Comment on above: Order Comment: CBCD Performed By: #### L 3100.5475, L501.6710, L505.7010, L100.0100, L4600.0100, L500.4050, L101.9900 #### [facility] [address] [place], [place], [id number] GFR/1.73 sq M.predicted among non-blacks MDRD (S/P/Bld) [Vol rate/Area] 60 mL/min/{1.73_m2} Normal >60 [facility] Comment on above: Order Comment: CBCD Result Comment: Non- GFR Calc Performed By: #### L 3100.5475, L501.6710, L505.7010, L100.0100, L4600.0100, L500.4050, L101.9900 #### [facility] [address] [place], [place], [id number] Globulin (S) [Mass/Vol] 3.5 g/dL Normal 2.2-4.2 [facility] Comment on above: Order Comment: CBCD Performed By: #### L 3100.5475, L501.6710, L505.7010, L100.0100, L4600.0100, L500.4050, L101.9900 #### [facility] [address] [place], [place], [id number] Glucose [Mass/Vol] 128 mg/dL High 74-106 [facility] Comment on above: Order Comment: CBCD Result Comment: Fast ing Glucose result greater than or equal to 126 mg/dL suggests DIABETES MELLITUS per A.D.A. criteria. Performed By: #### L 3100.5475, L501.6710, L505.7010, L100.0100, L4600.0100, L500.4050, L101.9900 #### [facility] [address] [place], [place], [id number] Potassium [Moles/Vol] 3.6 mmol/L Normal 3.5-5.1 [facility] Comment on above: Order Comment: CBCD Performed By: #### L 3100.5475, L501.6710, L505.7010, L100.0100, L4600.0100, L500.4050, L101.9900 #### [facility] [address] [place], [address] Sodium [Moles/Vol] 138 mmol/L Normal 136-145 [facility] Comment on above: Order Comment: CBCD Performed By: #### L 3100.5475, L501.6710, L505.7010, L100.0100, L4600.0100, L500.4050, L101.9900 #### [facility] [address] [place], [address] T PROT 7.5 g/dL Normal 6.4-8.2 [facility] Comment on above: Order Comment: CBCD Performed By: #### L 3100.5475, L501.6710, L505.7010, L100.0100, L4600.0100, L500.4050, L101.9900 #### [facility] [address] [place], [address] Urea nitrogen [Mass/Vol] 16 mg/dL Normal 7-18 [facility] Comment on above: Order Comment: CBCD Performed By: #### L 3100.5475, L501.6710, L505.7010, L100.0100, L4600.0100, L500.4050, L101.9900 #### [facility] [address] [place], [address] Erythrocyte Sed Rateon 03-29 SED RATE 6 mm/hr Normal 0-20 [facility] Comment on above: Performed By: #### L 3100.5475, L501.6710, L505.7010, L100.0100, L4600.0100, L500.4050, L101.9900 #### [facility] [address] [place], [address] Absolute lymphocyte countOrd ered By: Harjeet Britton on 04-10-2023 Lymphocytes Auto (Unsp spec) [#/Vol] 2.80 10*3/uL 0.83-4.51 [facility] Basophil percentageOrdered B y: Harjeet Britton on 04-10-2023 Basophil percentage 0 SEEN /hpf 0-5 [facility] Basophils/100 WBC (Bld) 0.9 % 0-1 [facility] Chloride [Moles/Vol] 107 mmol/L 98-107 [facility] Eosinophils/100 WBC (Bld) 1.3 % 0-5 [facility] Glucose [Mass/Vol] 115 mg/dL 74-106 [facility] Comment on above: Fasting Glucose resu lt from 100 to 125 mg/dL suggests IMPAIRED HOMEOSTASIS per A.D.A. criteria. Neutrophils (Bld) [#/Vol] 4.1 10*3/uL 2.0-7.7 [facility] Neutrophils/100 WBC (Bld) 52.7 % 47-70 [facility] Potassium [Moles/Vol] 4.0 mmol/L 3.5-5.1 [facility] Sodium [Moles/Vol] 138 mmol/L 136-145 [facility] WBC (Bld) [#/Vol] 7.7 10*3/uL 4.4-11.0 [facility] Bilirubin Test strip Ql (U)O rdered By: Harjeet Britton on 04-10-2023 Bilirubin Ql (U) Negative Negative [facility] Blood erythrocytes count (nu mber/volume)Ordered By: Harjeet Britton on 04-10-2023 RBC (Bld) [#/Vol] 5.04 10*6/uL 4.6-6.2 [facility] Blood hemoglobin measurement (mass/volume)Ordered By: Harjeet Britton on 04-10-2023 Hemoglobin (Bld) [Mass/Vol] 15.6 g/dL 13.0-16.5 [facility] Blood lymphocytes/100 leukoc ytesOrdered By: Harjeet Britton on 04-10-2023 Lymphocytes/100 WBC (Bld) 36.4 % 19-41 [facility] Blood monocytes/100 leukocyt esOrdered By: Harjeet Britton on 04-10-2023 Monocytes/100 WBC (Bld) 8.3 % 0-10 [facility] Blood platelet mean volumeOr dered By: Harjeet Britton on 04-10-2023 Platelet mean volume (Bld) [Entitic vol] 9.6 fL 6.2-12.0 [facility] Determination of erythrocyte mean corpuscular volume (MCV)Ordered By: Harjeet Britton on 04-10-2023 MCV (RBC) [Entitic vol] 88.5 fL 80-94 [facility] Hematocrit Auto (Bld) [Volum e fraction]Ordered By: Harjeet Britton on 04-10-2023 Hematocrit (Bld) [Volume fraction] 44.6 % 40-54 [facility] Ketones Test strip Ql (U)Ord ered By: Harjeet Britton on 04-10-2023 Ketones Ql (U) Negative Negative [facility] - Chemistry and C hemistry - challengeOrdered By: Harjeet Britton on 04-10-2023 CO2 [Moles/Vol] 27.0 mmol/L 21.0-32.0 [facility] Urea nitrogen/Creatinine [Mass ratio] 12.2 mg/mg 10-20 [facility] - Hematology and Cell countsOrdered By: Harjeet Britton on 04-10-2023 Erythrocyte distribution width (RBC) [Entitic vol] 41.0 fL 35.1-43.9 [facility] Erythrocyte distribution width (RBC) [Ratio] 12.6 % 11.6-14.6 [facility] Immature granulocytes/100 WBC (Bld) 0.400 % 0.0-0.9 [facility] Comment on above: IG% - Immature Granu locytes (promyelocytes, myelocytes and metamyelocytes) > 1% indicates that a LEFT SHIFT is Present. MCH (RBC) [Entitic mass] 31.0 pg 27.0-32.0 [facility] Nucleated RBC/100 WBC (Bld) [Ratio] 0 % 0-5 [facility] MCHC Auto (RBC) [Mass/Vol]Or dered By: Harjeet Britton on 04-10-2023 MCHC (RBC) [Mass/Vol] 35.0 g/dL 32-36 [facility] Mucus LM Ql (Urine sed)Order ed By: Harjeet Britton on 04-10-2023 Mucus Ql (Urine sed) 0 SEEN /hpf [facility] Nitrite Test strip Ql (U)Ord ered By: Harjeet Britton on 04-10-2023 Nitrite Ql (U) Negative Negative [facility] No Panel InformationOrdered By: Harjeet Britton on 04-10-2023 Estimated Creatinine Clearance Calc 59.05 ml/min [facility] Estimated GFR (MDRD) Amer 64 mL/min >60 [facility] Comment on above: GFR Calc Estimated GFR (MDRD) Non-Af Amer 53 mL/min >60 [facility] Comment on above: Non- GFR Calc Platelets bldOrdered By: Ildefonso Britton on 04-10-2023 Platelets (Bld) [#/Vol] 279 10*3/uL 150-450 [facility] Protein Test strip Ql (U)Ord ered By: Harjeet Britton on 04-10-2023 Protein Ql (U) 15 mg/dl Negative [facility] Serum or plasma calcium leni urement (mass/volume)Ordered By: Harjeet Britton on 04-10-2023 Calcium [Mass/Vol] 9.2 mg/dL 8.5-10.1 [facility] Serum or plasma creatinine m easurement (mass/volume)Ordered By: Harjeet Britton on 04-10-2023 Creatinine [Mass/Vol] 1.48 mg/dL 0.70-1.30 [facility] Comment on above: The validity of the calculated GFR & GFRAA in patients over 70 years has not been determined. Clinical correlation is essential. Serum or plasma urea nitroge n measurement (mass/volume)Ordered By: Harjeet Britton on 04-10-2023 Urea nitrogen [Mass/Vol] 18 mg/dL 7-18 [facility] Squamous epithelial cells de tection in urine sediment by light microscopyOrdered By: Harjeet Britton on 04-10-2023 Epithelial cells.squamous LM Ql (Urine sed) 0 SEEN /hpf 0-5 [facility] Thin prep Papanicolaou smear with manual screeningOrdered By: Harjeet Britton on 04-10-2023 Thin prep Papanicolaou smear with manual screening 4 5-15 [facility] Urine blood detectionOrdered By: Harjeet Britton on 04-10-2023 RBC Ql (U) 50 /ul Negative [facility] RBC Ql (U) 0 SEEN /hpf 0-5 [facility] Urine clarityOrdered By: Ildefonso Britton on 04-10-2023 Clarity (U) Clear Clear [facility] Urine color determinationOrd ered By: Harjeet Britton on 04-10-2023 Color (U) YELLOW Yellow [facility] Urine glucose detectionOrder ed By: Harjeet Britton on 04-10-2023 Glucose Ql (U) Normal mg/dl Normal [facility] Urine leukocyte esterase det ection by dipstickOrdered By: Harjeet Britton on 04-10-2023 Leukocyte esterase Test strip Ql (U) Negative Negative [facility] Urine pHOrdered By: Harjeet gomez on 04-10-2023 pH (U) 5.0 [pH] 5.0 - 8.0 [facility] Urine sediment bacteria coun t by microscopy (number/high power field)Ordered By: Harjeet Britton on 04-10-2023 Bacteria LM.HPF (Urine sed) [#/Area] 0 /[HPF] None Seen [facility] Urine specific gravity measu rementOrdered By: Harjeet Britton on 04-10-2023 Specific gravity (U) [Rel density] 1.025 1.002-1.030 [facility] Urobilinogen Auto test strip Ql (U)Ordered By: Harjeet Britton on 04-10-2023 Urobilinogen Ql (U) Normal mg/dl Normal [facility] CT CARDIAC SCORINGon 022 CT CARDIAC SCORING Patient Name: GAEL VALERO STUDY: CT CARDIAC SCORING; 06/18/2022 9:04 am INDICATION: Essential (primary) hypertension. COMPARISON: None. ACCESSION NUMBER(S): [id number] ORDERING CLINICIAN: PREM BOX TECHNIQUE: Using prospective ECG gating, limited CT scan of the coronary arteries was performed without intravenous contrast. Coronary calcium scoring was performed according to the method of Agatston. FINDINGS: The score and distribution of calcium in the coronary arteries is as follows: LM: 0. LAD: 7.4. LCx: 0. RCA: 1.1. Total: 8.5. The visualized segments of the lungs are normally expanded. 4 mm nodule along left major fissure image 2. 5 mm lingular nodule image 24. The visualized mid/lower ascending thoracic aorta measures 3.3 cm in diameter. The heart is normal in size. Trace pericardial effusion. Mildly prominent nonspecific mediastinal nodes up to 8 mm short axis subcarinal and left perihilar regions and also some prominent nodes about the distal esophagus and descending thoracic aorta measuring up to 7 mm short axis. Fatty liver. IMPRESSION: 1. Coronary artery calcium score of 8.5 *. 2. Subcentimeter lung nodules as described, likely benign. No further follow-up is required, however, if the patient has high risk factors for primary lung malignancy, follow-up noncontrast CT scan chest in 12 months may be obtained. (Edgar Dill et al., Guidelines for management of incidental pulmonary nodules detected on CT images: From the Fleischner Society 2017, Radiology. 2017 Artis;284 (1):228-243.) FLEISCHNER.ACR.IF.1 3. Mildly prominent nonspecific mediastinal nodes as above. *Coronary artery calcium scoring may be helpful in predicting the risk for future coronary heart disease events. According to the [place] [employer] Clinical Expert Consensus Task Force, such testing provides important prognostic information in patients with more than one coronary heart disease risk factor. The coronary artery calcium score correlates with the annual risk of a non-fatal myocardial infarction or coronary heart disease . Coronary artery score Annual Risk 0-99 0.4% 100-399 1.3% >400 2.4% These three breakpoints correspond to lower, intermediate and high risk states for future coronary events. Such information should be used, along with appropriate clinical judgment, to make decisions regarding the intensity of risk factor management strategies to treat blood lipids and to modify other non-lipid coronary risk factors. Reference: Gardena P et al. Circulation. 2007; 115:402-426 Electronically signed by: CHINA MCDONALD DO [facility] Vital Signs Date Time Vital Sign Value Performing Clinician Indra stewart 10-29-2024 08:55-0400 Body height 175.3 cm Giovanny Mueller MD Work Phone: [facility] 10-29-2024 08:55-0400 Body mass index (BMI) [Ratio] 27.22 kg/m2 Giovanny Mueller MD Work Phone: [facility] 10-29-2024 08:55-0400 Body weight 83.6 kg Giovanny Mueller MD Work Phone: [facility] 10-29-2024 08:55-0400 Diastolic blood pressure 79 mm[Hg] Giovanny Mueller MD Work Phone: [facility] 10-29-2024 08:55-0400 Heart rate 80 /min Giovanny Mueller MD Work Phone: [facility] 10-29-2024 08:55-0400 SaO2% (BldA) [Mass fraction] 97 % Giovanny Mueller MD Work Phone: [facility] 10-29-2024 08:55-0400 Systolic blood pressure 120 mm[Hg] Giovanny Mueller MD Work Phone: [facility] 10-16-2024 14:44-0400 Body height 175.[address] Prem Box DO Work Phone: [facility] 10-16-2024 14:44-0400 Body mass index (BMI) [Ratio] 27.5 kg/m2 Dr. Prem Box DO Work Phone: [facility] 10-16-2024 14:44-0400 Body weight 84.[address] Prem Box DO Work Phone: [facility] 04-10-2023 09:34-0400 Body height 175.26 cm [facility] 04-10-2023 09:34-0400 Body mass index (BMI) [Ratio] 26.6 kg/m2 [facility] 04-10-2023 09:34-0400 Body temperature 97.6 [degF] [place] 04-10-2023 09:34-0400 Body weight 81.91 kg [facility] 04-10-2023 09:34-0400 Diastolic blood pressure 78 mm[Hg] [facility] 04-10-2023 09:34-0400 Heart rate 64 /min [facility] 04-10-2023 09:34-0400 Respiratory rate 14 /min [place] 04-10-2023 09:34-0400 SaO2% (BldA) [Mass fraction] 98 % [facility] 04-10-2023 09:34-0400 Systolic blood pressure 156 mm[Hg] [facility] Encounters Encounter Date Encounter Type Care Provider Facility Start: 12-08-2024 End: 12-08-[address] Prem Box DO Work Phone: [facility] Work Phone: Start: 12-08-2024 End: 12-08-[address] Prem Box DO Work Phone: -Laboratory Work Phone: Start: 12-08-2024 End: 12-08-2024 ambulatory LUIS ALFREDO VARGAS Facility:[facility] Start: 11-13-2024 End: 11-13-2024 ambulatory Ottoniel Faria Facility:[facility] Start: 11-13-[address] Ottoniel gurrola MD -Physical Therapy Work Phone: Start: 10-29-2024 End: 10-29-2024 Patient encounter procedure Giovanny Mueller MD Work Phone: [facility] Comment on above: Radiculopathy, cervi liborio region (Primary Dx) Start: 10-29-2024 End: 10-29-2024 ambulatory CHRISTI JONES Facility:[facility] Start: 10-29-2024 End: 10-29-2024 Subsequent hospital visit by physician [facility] Work Phone: Radiology Comment on above: Cervical disc disord er with radiculopathy [M50.10] Start: 10-16-2024 End: 10-16-[address] Ottoniel Faria MD -[facility] Work Phone: Start: 10-16-2024 End: 10-16-2024 ambulatory Ottoniel Faria Facility:[facility] Start: 09-13-2024 Encounter for genera l adult medical examination without abnormal findings Prem Box [facility] Start: 08-30-2024 End: 08-30-[address] Prem Box DO -Laboratory Prince Ramos [facility] Start: 08-30-2024 End: 08-30-2024 ambulatory Prem Box Facility:[facility] Start: 06-19-2024 ambulatory Prem Box Facility: [facility] Start: 05-03-2024 End: 05-03-2024 ambulatory Prem Charu Facility:[facility] Start: 03-29-2024 End: 03-29-2024 [facility] Start: 04-10-2023 End: 04-10-2023 Emergency department patient visit [facility]-Emergency Department Work Phone: Start: 06-18-[address] Prem Box Facility:[id number] Procedures Date Procedure Procedure Detail Performing Clinician Start: 12-08-[address] Prem Box DO Work Phone: Comment on above: FEMALE:Follicular: 1 .9-12.5 mIU/mLMidcycle: 8.7-76.3 mIU/mLLuteal: 0.5-16.9 mIU/mLPost Menopause: 15.9-54.0 mIU/mLMALE:20-70 Years: 1.5-9.3 mIU/mL>70 Years: 3.1-34.6 mIU/mL Start: 12-08-2024 Vitamin D, 25-hydrox y measurement Dr. Prem Box DO Work Phone: Comment on above: Vitamin D StatusDefi ciency: <20 ng/mL (50nmol/L)Insufficiency: 20-30 ng/mL (50-75 nmol/L)Sufficiency: 30-100 ng/mL (75-250 nmol/L)Toxicity: >100 ng/mL (>250 nmol/L) Start: 10-29-2024 Radex spine cervical 4 or 5 views Christi Jones APRN.CNP Work Phone: Start: 10-16-2024 X-ray of cervical spine Dr. Prem Box DO Work Phone: Start: 08-30-2024 Measurement of renal function Dr. Prem Box DO Work Phone: Comment on above: GFR Calc Start: 08-30-2024 Prostate specific an tigen measurement Dr. Prem Box DO Work Phone: Comment on above: This test was perfor med using the TPSA assay method for [employer] chemistry system. Values obtained with differentassay methods cannot be used interchangably.When changing PSA assays in the course of monitoring apatient, additional sequential testing should be carriedout to confirm baseline values. Start: 04-10-2023 CT of abdomen and pe lvis without contrast Plan of Treatment Date Care Activity Detail Author Start: 10-16-2024 Patient referral [facility] Work Phone: Start: 03-11-2024 Covid-19 Vaccine ( season) Covid-19 Vaccine ( season) [facility] Start: 03-11-2024 Influenza vaccination Influenza Vaccine (#1) [facility] Start: 10-12-2021 Pneumococcal Vaccine: 50+ (1 of 1 - PCV) Pneumococcal Vaccine: 50+ (1 of 1 - PCV) [facility] Start: 10-12-2021 Shingrix Vaccine (1 of 2) Shingrix Vaccine (1 of 2) [facility] Start: 10-12-2016 Diabetes Screening Diabetes Screening [facility] Start: 10-12-2016 Screening for malignant neoplasm of colon [facility] Start: 10-12-2006 Lipid panel Lipid Screening [facility] Start: 07-30-2004 Urine microalbumin profile DTaP,Tdap,Td Vaccine (2 - Tdap) [facility] [facility]: [facility]1990 Hepatitis B Vaccine (1 of 3 - 19+ 3-dose series) Hepatitis B Vaccine (1 of 3 - 19+ 3-dose series) [facility] Start: 10-12-1989 Anxiety Screening Anxiety Screening [facility] Start: 10-12-1989 Depression Screening Depression Screening [facility] Start: 10-12-1989 Hepatitis C screening Hepatitis C Screening [facility] Start: 10-12-1989 HIV screening HIV Screening [facility] Patient Education ED Kidney Stone w/ Coli c [facility] Work Phone: Patient referral [facility] Work Phone: Immunizations Immunization Date Immunization Notes Care Provider Crystal dueñas 06-11-2022 influenza virus vaccine, unspecified formulation [employer] Work Phone: [facility] 07-30-1994 diphtheria and tetan us toxoids, adsorbed for pediatric use [employer] Work Phone: [facility] Work Phone: Payers Date Payer Category Payer Private Health Insurance [employer] PPO Member Subscriber Plan / Payer (Effective 2024-Present) Name: Gael Valero Relation to Subscriber: Self Name: Gael Valero Payer ID: Not on file Type: PPO Address: [place] [id number] 2024 Unknown [id number] 2024 Self-pay [id number] 2023 Private Health Insurance [id number] 1970 Unknown [id number] Unknown [id number] Unknown [id number] Unknown [id number] Unknown [id number] Unknown [id number] 462 Unknown [id number] 462 Unknown [id number] 462 Unknown [id number] 462 Unknown [id number] Social History Date Type Detail Facility [facility] if ever smoked [facility] Work Phone: Start: 1970 Sex Assigned At Male [facility] Start: 04-10-2023 [facility] if ever smoked [facility] Start: 04-10-2023 End: 10-29-2024 Tobacco smoking status [facility] Never smoked tobacco [facility] Start: 10-29-2024 Tobacco use and exposure Former smokeless tobacco user [facility] History of tobacco use Chews Tobacco [facility] Start: 10-29-2024 Alcoholic beverage intake Current drinker of alcohol (finding) [facility] Start: 10-29-2024 History of Social function [facility] Start: 10-29-2024 Tobacco use panel [facility] Adult Depression Screening Assessment 0 [facility] Start: 10-29-2024 Tobacco Comment occ use [facility] Start: 1970 Sex assigned at Not on file [facility] Progress note 10-29-2024 Note Date & Type Note Facility 10-29-2024 Note HNO ID: [id number] Author: GIOVANNY MUELLER MD Service: ? Author Type: Physician Type: Progress Notes Filed: 10/30/2024 07:11 Note Text: SPINE SURGERY NEW PATIENT PCP: No primary care provider on file. REFERRING PROVIDER: No referring provider defined for this encounter. Medical Decision Making: Problems: Moderate: 2+ stable chronic illnesses Data: Independent interpretation of test from other physician/QHCP Risk: Moderate: Moderate risk from testing/treatment Medical Decision Making Level: 4 - Moderate Assessment/Plan (M54.12) Radiculopathy, cervical region (primary encounter diagnosis) 1. Radiculopathy, cervical region (M54.12) - MRI reveals congenital spinal stenosis with moderate to severe foraminal narrowing at C5-C6 on the left side due to disc bulge and osteophyte formation. - Symptoms include pain, numbness, and tingling radiating to the left arm and hand, particularly affecting the C6 dermatome. - Previous treatments include physical therapy, epidural injections, and medications such as pregabalin and Cymbalta, with limited relief. - Recent improvement in pain levels from 7-8/10 to 4-5/10 noted after discontinuation of pregabalin. - Discussed surgical options, including anterior cervical discectomy and fusion (ACDF) and posterior foraminotomy. Explained risks and benefits, including potential for residual stiffness and recovery time of 4-6 weeks. - Recommended trial of a targeted transforaminal epidural steroid injection on the left side at C5-C6, to be performed by a skilled provider. - Advised against further physical therapy at this time, as minimal additional benefit is expected. - Patient understands and agrees with the plan to monitor symptoms and pursue injection therapy before considering surgical intervention. - Follow-up as needed based on symptom progression or recurrence. Patient specific-risk factors: No risk factor data indicating elevated risk for surgery due to smoking, diabetes, or BMI identified in review of available information in chart Subjective Chief Complaint: History of Present Illness: Gael is a 54-year-old male presenting for evaluation of neck and left arm pain. Gael, who is right-hand dominant, reports a recurrence of neck and left arm pain that began approximately eight months ago. He describes the pain as similar to an episode he experienced over 25 years ago, which was diagnosed as bulging discs and successfully treated with physical therapy. The current pain began without any identifiable trigger and has progressively worsened, causing difficulty turning his head in all directions. He describes the pain as feeling like somebody was shoving a knife in my neck. He has undergone physical therapy and traction without relief and has received two injections, including an epidural in June, which provided only temporary relief. He was prescribed pregabalin and Cymbalta but discontinued Cymbalta due to difficulty focusing. He has been off pregabalin for about two weeks due to insurance issues and reports some improvement in his symptoms during this time, with pain decreasing from a consistent 7-8/10 to 4-5/10. He also notes a reduction in burning sensations. He continues to experience numbness, tingling, and itching in his left arm, particularly affecting the thumb and index finger. He has not undergone any spine surgery and does not report any problems with his legs. He does not smoke. 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 He only goes out into the field for major incidents. The pain has affected his ability to perform tasks such as typing. 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 Neck: (+) pain Musculoskeletal: (+) left arm pain, (-) leg pain Neurological: (+) left arm numbness, (+) left arm tingling, (+) left arm burning, (+) left arm itching Questionnaire Generated HPI Possible Spine-Related Symptoms: Pain;Numbness/tingling Symptom Onset:6 months to 1 year Symptom Location(s): Neck;Arm(s) Symptom Laterality: Left-sided Aggravating Factors: Sitting;Standing;Bending forward/backward;Changing position Alleviating Factors: Lying down;Exercising/stretching/massage Non-Surgical Therapies Tried: Physical Therapy;Epidural steroid injections;NSAIDS;Membrane stabilizers Prior Spine Surgery(s): They report no history of prior spine surgery. Image annotated by patient with symptom distribution: Details on Prior Non-Surgical Therapies Attempted: Physical therapy: Approximate number of sessions: 10 or more Approximate last session date: Within the last 12 months Epidural Spinal Injection(s): Approximate number of injections: 2 Approximate date of last injection: Within the last 3 months (more content not included)... [facility] History of Present illness Narrative 10-29-2024 Giovanny Mueller MD - 10/29/2024 9:05 AM EDT Note Date & Type Note Facility 10-29-2024 History of Presen t illness Narrative Images from the original note were not included. SPINE SURGERY NEW PATIENT PCP: No primary care provider on file. REFERRING PROVIDER: No referring provider defined for this encounter. Medical Decision Making: Problems: Moderate: 2+ stable chronic illnesses Data: Independent interpretation of test from other physician/QHCP Risk: Moderate: Moderate risk from testing/treatment Medical Decision Making Level: 4 - Moderate Assessment/Plan (M54.12) Radiculopathy, cervical region (primary encounter diagnosis) 1. Radiculopathy, cervical region (M54.12) - MRI reveals congenital spinal stenosis with moderate to severe foraminal narrowing at C5-C6 on the left side due to disc bulge and osteophyte formation. - Symptoms include pain, numbness, and tingling radiating to the left arm and hand, particularly affecting the C6 dermatome. - Previous treatments include physical therapy, epidural injections, and medications such as pregabalin and Cymbalta, with limited relief. - Recent improvement in pain levels from 7-8/10 to 4-5/10 noted after discontinuation of pregabalin. - Discussed surgical options, including anterior cervical discectomy and fusion (ACDF) and posterior foraminotomy. Explained risks and benefits, including potential for residual stiffness and recovery time of 4-6 weeks. - Recommended trial of a targeted transforaminal epidural steroid injection on the left side at C5-C6, to be performed by a skilled provider. - Advised against further physical therapy at this time, as minimal additional benefit is expected. - Patient understands and agrees with the plan to monitor symptoms and pursue injection therapy before considering surgical intervention. - Follow-up as needed based on symptom progression or recurrence. Patient specific-risk factors: No risk factor data indicating elevated risk for surgery due to smoking, diabetes, or BMI identified in review of available information in chart Subjective Chief Complaint: History of Present Illness: Gael is a 54-year-old male presenting for evaluation of neck and left arm pain. Gael, who is right-hand dominant, reports a recurrence of neck and left arm pain that began approximately eight months ago. He describes the pain as similar to an episode he experienced over 25 years ago, which was diagnosed as bulging discs and successfully treated with physical therapy. The current pain began without any identifiable trigger and has progressively worsened, causing difficulty turning his head in all directions. He describes the pain as feeling like somebody was shoving a knife in my neck. He has undergone physical therapy and traction without relief and has received two injections, including an epidural in June, which provided only temporary relief. He was prescribed pregabalin and Cymbalta but discontinued Cymbalta due to difficulty focusing. He has been off pregabalin for about two weeks due to insurance issues and reports some improvement in his symptoms during this time, with pain decreasing from a consistent 7-8/10 to 4-5/10. He also notes a reduction in burning sensations. He continues to experience numbness, tingling, and itching in his left arm, particularly affecting the thumb and index finger. He has not undergone any spine surgery and does not report any problems with his legs. He does not smoke. 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 He only goes out into the field for major incidents. The pain has affected his ability to perform tasks such as typing. 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 Neck: (+) pain Musculoskeletal: (+) left arm pain, (-) leg pain Neurological: (+) left arm numbness, (+) left arm tingling, (+) left arm burning, (+) left arm itching Questionnaire Generated HPI Possible Spine-Related Symptoms: Pain;Numbness/tingling Symptom Onset:6 months to 1 year Symptom Location(s): Neck;Arm(s) Symptom Laterality: Left-sided Aggravating Factors: Sitting;Standing;Bending forward/backward;Changing position Alleviating Factors: Lying down;Exercising/stretching/massage Non-Surgical Therapies Tried: Physical Therapy;Epidural steroid injections;NSAIDS;Membrane stabilizers Prior Spine Surgery(s): They report no history of prior spine surgery. Image annotated by patient with symptom distribution: Details on Prior Non-Surgical Therapies Attempted: Physical therapy: Approximate number of sessions: 10 or more Approximate last session date: Within the last 12 months Epidural Spinal Injection(s): Approximate number of injections: 2 Approximate date of last injection: Within the last 3 months Percentage of relief (I.e. 100% = complete relief/no pain): 50 Duration of relief: More than 1 month, but not more than 3 months Giovanny Wasserman MD , have reviewed the above patient-reported information and have reviewed it with the patient. Major Risk Factors Notable surgical risk factors: Smoking status: Never BMI:27.22 kg/m2. Current Anticoagulation/Antiplatelet Use: Aspirin Obesity normal BMI: 27.22 kg/m2 High: BMI > 40 Moderate: BMI 30-40 Normal: BMI < 30 Diabetes normal High: A1C > 8 Moderate: A1C 7-8 Normal: A1C < 7 Hx of DVT / PE normal High: dx of DVT / PE Normal: no dx of DVT / PE Smoking normal Last Status: Never High: Current smoker Normal: Non smoker Narcotics Use normal High:NarxCare >=300 Moderate: 100-299 Normal: 0-99 Depression normal High: PHQ-9 >14 Moderate: PHQ-9 5-14 Normal: PHQ-9 < 5 Data from [facility] Epic on prior therapies: Last PT session: No date on file in last 365 days Last Epidural Steroid Injection: No epidural injection on file for last 365 days Last Spine Surgery: No history of prior spine surgery in search of available [facility] records Objective PHYSICAL EXAM BP 120/79 (BP Site: Left Arm, BP Position: Sitting, BP Cuff Size: Large Adult) Pulse 80 Ht 175.3 cm (5' 9) Wt 83.6 kg (184 lb 4.9 oz) SpO2 97% BMI 27.22 kg/m General: Well-developed, well-nourished. MSK/Ext: Full strength in bilateral upper extremities; full strength in bilateral lower extremities; normal gait; able to walk on heels and toes; able to perform tandem gait. Results: Imaging: - MRI: - Mild congenital stenosis. - Moderate to severe left-sided foraminal narrowing at C5-C6 with disc bulge and bone spur. - No major spinal cord compression. - X-ray: - Reasonable neural alignment. - Mild disc space collapse in a few levels. - No major abnormalities. documented in this encounter [facility] History of Present illness Narrative 10-29-2024 Claribel Howe Tech - 10/29/2024 8:30 AM EDT Note Date & Type Note Facility 10-29-2024 History of Presen t illness Narrative Radiology Service Progress Note PATIENT NAME: Gael Valero DATE OF SERVICE: October 29, 2024 TIME: 8:50 AM PATIENT IDENTITY VERIFICATION COMPLETED USING TWO (2) IDENTIFIERS: Name and Date of confirmed by patient verbally. FALL SCREENING: Has the patient had 2 falls in the last year or 1 fall with injury or currently using an Ambulatory Assistive Device (Walker, Cane, Wheelchair, Crutches, etc.)? No PATIENT GENDER DATA: Assigned male at PATIENT RELEVANT IMPLANT DATA REVIEWED: Not Applicable PATIENT PRESENTS WITH AN IMPLANTABLE OR ATTACHED REINFORCING STEEL WORKER: No RADIOLOGY DEPARTMENT: General X-ray: Exam(s) Completed: Spine X-Ray(s): Cervical AP / LAT / FLEX-EXT PERIPHERAL IV DATA: Not applicable SIGNED BY: Juan Patterson October 29, 2024 8:50 AM documented in this encounter [facility] Progress note 10-29-2024 Note Date & Type Note Facility 10-29-2024 Note HNO ID: [id number] Author: CLARIBEL HOWE Tech Service: ? Author Type: Delivery Of [employer] News Type: Progress Notes Filed: 10/29/2024 08:50 Note Text: Radiology Service Progress Note PATIENT NAME: Gael Valero DATE OF SERVICE: October 29, 2024 TIME: 8:50 AM PATIENT IDENTITY VERIFICATION COMPLETED USING TWO (2) IDENTIFIERS: Name and Date of confirmed by patient verbally. FALL SCREENING: Has the patient had 2 falls in the last year or 1 fall with injury or currently using an Ambulatory Assistive Device (Walker, Cane, Wheelchair, Crutches, etc.)? No PATIENT GENDER DATA: Assigned male at PATIENT RELEVANT IMPLANT DATA REVIEWED: Not Applicable PATIENT PRESENTS WITH AN IMPLANTABLE OR ATTACHED REINFORCING STEEL WORKER: No RADIOLOGY DEPARTMENT: General X-ray: Exam(s) Completed: Spine X-Ray(s): Cervical AP / LAT / FLEX-EXT PERIPHERAL IV DATA: Not applicable SIGNED BY: Juan Patterson October 29, 2024 8:50 AM [facility] Evaluation note 10-16-2024 Note Date & Type Note Facility 10-16-2024 Evaluation note Diagnosis Onset Date Resolution Cervical myelopathy with cervical radiculopathy acute October 2:29pm [facility] Work Phone: Evaluation note Note Date & Type Note Facility Evaluation note No assessment information availa krunal [facility] Work Phone: Evaluation note Note Date & Type Note Facility Evaluation note Diagnosis Cervical disc disorder with radiculopathy Brachial neuritis or radiculitis nos documented in this encounter [facility] Evaluation note Note Date & Type Note Facility Evaluation note Diagnosis Radiculopathy, cervical region- Primary Brachial neuritis or radiculitis nos documented in this encounter [facility] Reason for referral (narrative) Note Date & Type Note Facility Reason for referral (narrative) No reason for referral information available [facility] Work Phone: Reason for visit Narrative Diagnostic Procedure Only (Routine) - Closed Note Date & Type Note Facility Reason for visit Narrative Specialty Diagnoses / Procedures Referred By Isrealac t Referred To Contact XR IMAGING Diagnoses Cervical disc disorder with radiculopathy Procedures XR CERV OTHER 4V AP/LAT/FLX/EXT RADEX SPINE CERVICAL 4 OR 5 VIEWS Christi Jones, PATCH SETTER.COLLECTIONS TECHNICIAN [address] [place] [address] Phone: tel: fax: XR IMAGING [place] [address] Referral ID Status Reason Start Date Expiration Date V isits Requested Visits Authorized [id number] Closed Auto-Generate d Referral 09/14/2024 10/14/2025 1 1 [facility] Summary Purpose Family History No Family History Records Found Relationship Condition Age at Onset Recorded Date/T vasu Not Specified Dementia Unknown Malignant neoplasm Unknown Advance Directives No Advanced Directives Records Found Advance Directive Response Recorded Date/ Time Living Will No April 10 3 9:42am Power of Quality Analyst/Technical Writer No April 10 023 9:42am Chief Complaint and Reason for Visit Chief Complaint FLANK PAIN Chief Complaint Admit Date CERVICAL SPINE October 16, 2024 2:29 pm Room 5 October 16, 2024 2:55 pm CERV RADIC/RX HERE November 13, 2024 4:30pm Reason for Visit Admit Date Cervical myelopathy with cervical radicu lopathy October 16, 2024 2:29pm Additional Source Comments Goals (unrecognized section and content) Goals may be documented in a n alternate sectionGoals may be documented in an alternate sectionGoals may be documented in an alternate sectionGoals may be documented in an alternate section (unrecognized sect ion and content) No Status Records FoundNo Status Records FoundNo Status Records FoundNo Status Records Found INFORMATION SOURCE (unrecogn ized section and content) DATE CREATED AUTHOR 06/19/2022 [facility] DATE CREATED AUTHOR AUTHOR'S ORGANIZ ATION 11/01/2024 [facility] DATE CREATED AUTHOR AUTHOR'S ORGANIZ ATION 11/14/2024 [facility] DATE CREATED AUTHOR AUTHOR'S ORGANIZ ATION 03/24/2025 [facility] Teams (unrecognized sec tion and content) Team Status: Active Member Role Status Dates Dr. Akila Devries DO Family Provider Active Dr. Prem Box DO Primary Care Provider Active Team Status: Inactive Member Role Status Dates Dr. Prem Box DO Primary Care Provider Active Dr. Harjeet Britton DO Emergency Provider Active Team Status: Active Member Role Status Dates Dr. Prem Box DO Primary Care Provider Active Team Status: Inactive Member Role Status Dates Dr. Prem Box DO Primary Care Provider Active Start: August 30, 2024 End: August 30, 2024 Dr. Prem Box DO Attending Provider Active Start: August 30, 2024 End: August 30, 2024 Team Status: Inactive Member Role Status Dates Dr. Prem Box DO Primary Care Provider Active Start: October 16, 2024 End: October 16, 2024 Dr. Prem Box DO Referring Provider Active Start: October 16, 2024 End: October 16, 2024 Dr. Ottoniel Faria MD Attending Provider Active Start: October 16, 2024 End: October 16, 2024 Team Status: Inactive Member Role Status Dates Dr. Prem Box DO Primary Care Provider Active Start: October 16, 2024 End: October 16, 2024 Dr. Antonio Salinas MD Attending Provider Active S tart: October 16, 2024 End: October 16, 2024 Team Status: Active Member Role Status Dates Dr. Prem Box DO Primary Care Provider Active Start: November 13, 2024 Dr. Ottoniel Faria MD Attending Provider Active Start: November 13, 2024 Dr. Ottoniel Faria MD Referring Provider Active Start: November 13, 2024 Team Status: Inactive Member Role Status Dates ERNA BALES Attending Provider Active Start: December 08, 2024 End: December 08, 2024 ERNA BALES Referring Provider Active Start: December 08, 2024 End: December 08, 2024 Dr. Prem Box , Primary Care Provider Active Start: December 08, 2024 End: December 08, 2024 Team Status: Active Member Role/Relationship Status Dates Dr. Prem Box DO Primary Care Provider Active Team Status: Inactive Member Role/Relationship Status Dates ERNA BALES Attending Provider Active Start: December 08, 2024 End: December 08, 2024 ERNA BALES Referring Provider Active Start: December 08, 2024 End: December 08, 2024 Dr. Prem Box , Primary Care Provider Active Start: December 08, 2024 End: December 08, 2024 Source Comments (unrecognize d section and content) In the event this informatio n is protected by the Federal Confidentiality of Alcohol and Drug Abuse Patient Records regulations: The Federal rules restrict any use of the information to criminally investigate or prosecute any alcohol or drug abuse patient.[facility] the event this information is protected by the Federal Confidentiality of Alcohol and Drug Abuse Patient Records regulations: The Federal rules restrict any use of the information to criminally investigate or prosecute any alcohol or drug abuse patient.[facility] Reason for Visit (unrecogniz ed section and content) Reason Comments New Patient Evaluation FOR RECORDS PERTAINING TO PATIENTS WHO ARE OR HAVE BEEN ENROLLED IN A CHEMICAL DEPENDENCY/SUBSTANCEABUSE PROGRAM, SOME INFORMATION MAY BE OMITTED. This clinical summary was aggregated from multiple sources. Caution should be exercised in using it in the provision of clinical care. This summary normalizes information from multiple sources, and as a consequence, information in this document may materially change the coding, format and clinical context of patient data. In addition, data may be omitted in some cases. CLINICAL DECISIONS SHOULD BE BASED ON THE PRIMARY CLINICAL RECORDS. [employer] [facility]. provides no warranty or guarantee of the accuracy or completeness of information in this document.
[2025-05-17 10:16] LABS: Hematocrit 40.0 % (40-54); Hemoglobin 14.0 g/dL (13.0-16.5); Immature Granulocytes Count 0.040 X10^3/uL (0.0-0.0); Mean Corp Hgb Conc 35.0 g/dL (32-36); Mean Corpuscular Volume 87.1 fL (80-94); Mean Platelet Vol. 9.8 fl (6.2-12.0); NRBC Flagged by Analyzer 0 % (0-5); Platelet Count 325 K/mm3 (150-450); RBC Distribution Width CV 13.0 % (11.6-14.6); RBC Distribution Width SD 40.9 fl (35.1-43.9); Red Blood Count 4.59 M/mm3 (4.6-6.2); White Blood Count 5.1 K/mm3 (4.4-11.0)
== END | disposition home or self-care (01) ==
LOC: MTLAB 07:27
PROVIDERS: PCP Family Medicine
DX: R68.82 Decreased libido (principal); E07.9 Disorder of thyroid, unspecified; R53.83 Other fatigue; Z13.21 Encounter for screening for nutritional disorder
CPT/HCPCS: 36415; 82670; 84402; 85025